=== PATIENT | male | born 1955 | race Caucasian/White ===

== ENCOUNTER → 2018-09-05 | Outpatient (CLI) | payer MEDICAID, MEDICARE ==
--- NOTE | 2018-09-05 09:15 | XR ---
EXAMINATION TYPE: XR cervical spine comp DATE OF EXAM: 09/05/2018 COMPARISON: 04/04/2007 HISTORY: Chronic pain TECHNIQUE: Four views are submitted. FINDINGS: The odontoid is intact. There are no compression deformities. The prevertebral soft tissue structur es are within normal limits. Postsurgical changes are noted. Foraminal encroachment level C3-C7 susp ected bilaterally. Degenerative disc disease C3-C4. Spurring at C2 on C3 noted. Multilevel facet arth ropathy suspected. There may be a minimal anterolisthesis of C5 relative to C6. IMPRESSION: 1. Severe degenerative disc disease C3-C4 with postsurgical change extending C4 to the approximate [place] of T1. 2. Multilevel foraminal encroachment
--- NOTE | 2018-09-05 09:18 | XR ---
EXAM TYPE: LUMBAR SPINE X RAY SERIES COMPARISON: NONE HISTORY: Pain TECHNIQUE: 4 views are submitted. FINDINGS: Alignment is anatomic. The pedicles are intact. The transverse processes are intact. There is no s pondylolysis or spondylolisthesis. Multilevel hypertrophic spurring noted anteriorly with multilevel mild degenerative disc disease. More advanced facet arthropathy L4-5 and L5-S1. Vascular calcificati ons noted. IMPRESSION: 1. Multilevel hypertrophic changes and degenerative disc disease with most marked findings at the tho racolumbar junction. 2. Advanced facet arthropathy L4-5 and L5-S1
== END | disposition home or self-care (01) ==
LOC: RADXRYALE 08:38
PROVIDERS: ATTEND Physician Assistant Medical
DX: M50.31 Other cervical disc degeneration, high cervical region (principal); M51.36 Other intervertebral disc degeneration, lumbar region; M46.87 Other specified inflammatory spondylopathies, lumbosacral region; R26.89 Other abnormalities of gait and mobility; Z98.890 Other specified postprocedural states
CPT/HCPCS: 72050; 72110

== ENCOUNTER → 2018-09-07 | Outpatient (CLI) | payer MEDICAID, MEDICARE ==
--- NOTE | 2018-09-07 23:51 | MR ---
EXAMINATION TYPE: MR cervical spine wo/w con DATE OF EXAM: 09/07/2018 COMPARISON: 06/26/2015 HISTORY: Neck pain, prior surgery 2006 TECHNIQUE: Multiplanar, multisequence images of the cervical spine were acquired utilizing 8.5 mL intravenous Ga davist gadolinium contrast. Diffusion weighted imaging was performed. There is a multilevel anterior fusion surgery from C4 to T1 with metal artifact. Vertebra have normal alignment. The cervical spinal cord shows increased signal within the cord at C4 level and C6 level that measures 7 x 4 mm at both locations. There is no expansion of the cord. There is posterior disc herniation and spurring at C3-4 with some encroachment on the spinal canal. The canal is narrowed to 6 mm at C3-4. I see no focal bone destruction. Precontrast images show no pathologic enhancement. The brainstem is intact. There is no evidence of paraspinal mass. IMPRESSION: Multilevel anterior fusion surgery. There is myelomalacia with increased signal in the cervical cord at C4 and C6 levels unchanged. There is 6 mm cervical bony spinal stenosis at C3-4 unchanged.
== END ==
LOC: RADMRIMAIN 17:38
PROVIDERS: ATTEND Physician Assistant Medical
DX: M48.02 Spinal stenosis, cervical region (principal); G95.89 Other specified diseases of spinal cord; Z98.1 Arthrodesis status
CPT/HCPCS: 82565; 72156; 36415; A9585

== ENCOUNTER 2018-09-30 08:07 | Day surgery (SDC) | payer MEDICAID, MEDICARE ==
[2018-09-27 18:09] VITALS: BMI 30.7
[~2018-09-30 08:07] MED LIST: LACTATED RINGERS 1,000 ML IV SCH; LIDOCAINE 1% 20 ML VIAL (10MG/ML) FOR IV START INTRADERMA PRN
[2018-09-30 08:31] VITALS: RESP 16; TEMP 97.7
[2018-09-30] MEDS ORDERED: PROPOFOL 10 MG/ML 20 ML VIAL IV ONE (09:25)
[2018-09-30] MEDS ORDERED: LIDOCAINE 1% INJ 10MG/ML (20 ML MDV) ONE (09:25)
--- NOTE | 2018-09-30 09:31 | P.GSHP ---
History of Present Illness H&P Date: 09/30/18 Chief Complaint: Colon cancer screening Patient here today for colonoscopy. Last colonoscopy 5 years ago. He says he has a history of colon polyps. No bowel related complaints. Past Medical History Past Medical History: Hyperlipidemia History of Any Multi-Drug Resistant Organisms: None Reported Past Surgical History: Orthopedic Surgery Additional Past Surgical History / Comment(s): COLONOSCOPY. EXC CATARACTS. CERVICAL SURGERY, HAS PLATE. Past Anesthesia/Blood Transfusion Reactions: No Reported Reaction Smoking Status: Former smoker - Past Family History Mother Sister(s) Family Medical History: Cancer Medications and Allergies Home Medications Medication Instructions Recorded Confirmed Type Ascorbic Acid [Vitamin C] 800 mg PO DAILY 09/27/18 09/30/18 History Farrukh Red 1 tab PO DAILY 09/27/18 History Simvastatin [Zocor] 80 mg PO HS 09/27/18 09/30/18 History Tamsulosin [Flomax] 0.4 mg PO DAILY 09/27/18 09/30/18 History Allergies Allergy/AdvReac Type Severity Reaction Status Date / Time No Known Allergies Allergy Verified 09/30/18 08:17 Surgical - Exam Vital Signs Temp Pulse Resp BP Pulse Ox 97.7 F 88 16 147/73 97 09/30/18 08:30 09/30/18 08:30 09/30/18 08:30 09/30/18 08:30 09/30/18 08:30 Physical exam: General: Well-developed, well-nourished HEENT: Normocephalic, sclerae nonicteric Abdomen: Nontender, nondistended Extremities: No edema Neuro: Alert and oriented Assessment and Plan (1) Colon cancer screening Narrative/Plan: Will proceed with colonoscopy at this time. Current Visit: Yes Status: Acute Code(s): Z12.11 - ENCOUNTER FOR SCREENING FOR MALIGNANT NEOPLASM OF COLON SNOMED Code(s): 044772510
--- NOTE | 2018-09-30 09:49 | P.PCN ---
Date of Procedure: 09/30/18 Procedure(s) Performed: PREOPERATIVE DIAGNOSIS: Colon cancer screening, history of polyps POSTOPERATIVE DIAGNOSIS: Diverticulosis PROCEDURE: Colonoscopy ANESTHESIA: MAC SURGEON: Ady Butts M.D. SPECIMENS: None ENDOSCOPIC PROCEDURE: The patient was placed on the endoscopy table in the left decubitus position. The Olympus colonoscope was inserted into the anus and passed under direct visualization to the base of the cecum. The appendiceal orifice was visualized. From that point the scope was slowly withdrawn inspecting all surfaces carefully. There were no neoplastic inflammatory or polypoid lesions throughout the cecum, ascending, transverse, descending, sigmoid and rectum. There was mild left-sided diverticulosis noted. Digital rectal examination was normal. The patient was taken to the recovery room in stable condition per anesthesia guidelines. RECOMMENDATIONS: Increase fiber. Follow-up colonoscopy 5 years.
[2018-09-30 10:39] VITALS: BP 105/71; PULSE 67
== END 2018-09-30 10:37 | disposition home or self-care (01) ==
LOC: ORWHC2ENDO 08:07
PROVIDERS: ATTEND Surgery
DX: Z12.11 Encounter for screening for malignant neoplasm of colon (principal); K57.30 Diverticulosis of large intestine without perforation or abscess without bleeding; E78.5 Hyperlipidemia, unspecified; N40.0 Benign prostatic hyperplasia without lower urinary tract symptoms; Z79.899 Other long term (current) drug therapy; Z86.010 Personal history of colon polyps; Z87.891 Personal history of nicotine dependence
CPT/HCPCS: J2001; J2704; G0105

== ENCOUNTER → 2018-10-03 | Outpatient (CLI) | payer MEDICAID, MEDICARE ==
--- NOTE | 2018-10-04 08:48 | CT ---
EXAMINATION TYPE: CT cervical spine wo con DATE OF EXAM: 10/03/2018 COMPARISON: 09/07/2018 HISTORY: spinal stenosis, cervical degeneration. Hx cervical surgery CT DLP: 528.30 mGycm. Automated Exposure Control for Dose Reduction was Utilized. TECHNIQUE: CT scan of the cervical spine is obtained without contrast, axial images are obtained, sa gittal and coronal reformatted images are also reviewed. FINDINGS: There is anterior cervical fusion of the C4-T1 vertebral bodies with partial osseous fusion . The remaining posterior disc osteophyte complexes at C3-C4, C4-C5 and C7-T1. Multilevel uncovertebr al hypertrophy and facet arthropathy are seen. Anterior osteophytes are present at C2-C3 and C3-C4. T here is degenerative narrowing of the atlantodental interval. No prevertebral soft tissue swelling is seen. The dens appears intact. No acute fracture or dislocation is seen of the cervical spine. Verte bral body heights are maintained. There is very mild grade 1 anterolisthesis of C5 on C6, surgically fixated. Skull base remains aligned. The thyroid gland is somewhat heterogenous although no discrete measurable nodule is seen on CT. Lung apices are well aerated. Nonenlarged cervical chain lymph nodes are present. C2-C3: There is a small left paracentral disc herniation, uncovertebral hypertrophy and facet arthrop athy creating mild left neural foraminal narrowing and mild spinal canal stenosis. Right neuroforamen is patent. C3-C4: There is a right paracentral disc osteophyte complex, uncovertebral hypertrophy and facet arth ropathy that create severe bilateral neural foraminal narrowing and mild spinal canal stenosis. C4-C5: Surgical fixation is noted anteriorly. Uncovertebral hypertrophy and facet arthropathy remain with a broad-based posterior osteophyte creating mild spinal canal stenosis in moderate bilateral danita ral foraminal narrowing. C5-C6: There is grade 1 anterolisthesis. Uncovertebral hypertrophy and facet arthropathy are seen wit h anterior cervical fusion. There is mild right neural foraminal narrowing and severe left neural for aminal narrowing. No significant spinal canal stenosis. C6-C7: Anterior cervical fusion is seen. Uncovertebral hypertrophy and facet arthropathy are present crating severe left neural foraminal narrowing and moderate right neural foraminal narrowing. No sign ificant spinal canal stenosis. C7-T1 there is a very small posterior disc osteophyte complex seen at the lateral recesses. This in c ombination with uncovertebral hypertrophy creates mild bilateral neural foraminal narrowing. No signi ficant spinal canal stenosis. The known myelomalacia seen on the MRI cervical spine dated 09/07/2018 is not visualized on CT and be tter evaluated with MRI. Spinal canal is overall limited on CT. IMPRESSION: 1. Anterior cervical fusion of C4-T1 with acute fracture evident in the cervical spine. Grade 1 ante rolisthesis of C5 on C6 is surgically fixated. 2. Multilevel uncovertebral hypertrophy, facet arthropathy and posterior disc osteophyte complexes gr ating mild spinal canal stenosis at C3-C4 and C4-C5 in variable degrees of neural foraminal narrowing as described above (some levels severe).
== END ==
LOC: RADCTMAIN 15:52
PROVIDERS: ATTEND Family Medicine
DX: M48.02 Spinal stenosis, cervical region (principal); M50.11 Cervical disc disorder with radiculopathy, high cervical region; M99.71 Connective tissue and disc stenosis of intervertebral foramina of cervical region; M46.92 Unspecified inflammatory spondylopathy, cervical region; M25.78 Osteophyte, vertebrae; S12.300A Unspecified displaced fracture of fourth cervical vertebra, initial encounter for closed fracture; Z98.1 Arthrodesis status
CPT/HCPCS: 72125

== ENCOUNTER → 2019-01-23 | Outpatient (CLI) | payer MEDICAID, MEDICARE ==
--- NOTE | 2019-01-23 12:57 | US ---
EXAMINATION TYPE: US thyroid st tissue head/neck DATE OF EXAM: 01/23/2019 COMPARISON: NONE CLINICAL HISTORY: E03.9 Unspecified acquired hypothyroidism. Hypothyroidism per order. GLAND SIZE: Right Lobe: 5.7 x 2.0 x 2.0 cm Overall Parenchyma: Heterogeneous Left Lobe: 3.9 x 2.0 x 1.3 cm Overall Parenchyma: Heterogeneous Isthmus Thickness: 0.40 cm NODULES RIGHT: # of nodules measured on right: 1 1. 0.8 X 0.9 x 0.6 cm hypoechoic solid nodule at the mid pole with poorly defined margins . This n odule is wider than tall and shows intranodular vascularity. Prior size: no prior LEFT: # of nodules measured on left: 1 1. 0.5 X 0.6 x 0.4 cm hypoechoic solid nodule at the lower pole with irregular margins. This nodul e is wider than tall and shows intranodular vascularity. Prior size: no prior ISTHMUS: # of nodules measured in the isthmus: 0 IMPRESSION: Nonspecific thyroid heterogeneity and nodularity. Enlarged right thyroid lobe. Correlate clinically w ith thyroid function testing.
== END | disposition home or self-care (01) ==
LOC: RADUSWWP 11:35
PROVIDERS: ATTEND Family Medicine
DX: E04.1 Nontoxic single thyroid nodule (principal); E03.9 Hypothyroidism, unspecified
CPT/HCPCS: 76536

== ENCOUNTER → 2019-02-27 | Outpatient (CLI) | payer MEDICAID, MEDICARE ==
--- NOTE | 2019-02-27 11:16 | XR ---
EXAMINATION TYPE: XR cervical spine limited DATE OF EXAM: 02/27/2019 COMPARISON: 1217 E HISTORY: post surg f/u. TECHNIQUE: Three views are submitted. FINDINGS: The odontoid is intact. There are no compression deformities. The prevertebral soft tissue structur es are within normal limits. Hypertrophic and degenerative change C2-C3 and C3-C4 with extensive pos tsurgical changes of throughout the cervical spine. Alignment is near-anatomic. Findings are stable. IMPRESSION: 1. Severe degenerative disc disease C3-C4 with stable postsurgical change. 2. Multilevel foraminal encroachment
== END | disposition home or self-care (01) ==
LOC: RADXRMAIN 10:31
PROVIDERS: ATTEND Neurological Surgery
DX: M50.31 Other cervical disc degeneration, high cervical region (principal); Z98.1 Arthrodesis status
CPT/HCPCS: 72040

== ENCOUNTER → 2019-04-27 | Outpatient (CLI) | payer MEDICAID, MEDICARE ==
--- NOTE | 2019-04-27 13:25 | XR ---
Cervical spine HISTORY: Arthrodesis follow up 5 views of the cervical spine correlated prior exam 02/27/2019 Postop changes show a stable appearance. Hypertrophic spondylosis noted again at C2-3, loss of disc height C3-4, anterior cervical fusion and discectomy changes at C4-T1. Posterior fusion extends from C3 through T2. Alignment is stable. Multilevel left-sided foraminal encroachment is present. IMPRESSION: Stable postoperative appearance. Degenerative disc changes.
== END | disposition home or self-care (01) ==
LOC: RADXRMAIN 09:28
DX: Z47.89 Encounter for other orthopedic aftercare (principal); M50.30 Other cervical disc degeneration, unspecified cervical region; Z98.1 Arthrodesis status
CPT/HCPCS: 72050

== ENCOUNTER → 2019-07-24 | Outpatient (CLI) | payer MEDICAID, MEDICARE ==
--- NOTE | 2019-07-24 11:00 | CT ---
EXAMINATION TYPE: CT cervical spine wo con DATE OF EXAM: 07/24/2019 COMPARISON: 10/03/2018 HISTORY: 64-year-old male status post cervical arthrodesis, assess status TECHNIQUE: Contiguous axial scanning of the cervical spine without IV contrast. Coronal and sagittal reconstructions performed. CT DLP: 791 mGycm Automated exposure control for dose reduction was used. FINDINGS: No craniocervical junction abnormality, predental space widening, or prevertebral soft tissue swellin g. Prior ACDF from C4 through T1 levels redemonstrated. Some residual posterior osteophytic ridging resu lting in generalized mild narrowing of the spinal canal along the fused levels unchanged. Fixed grade 1 anterolisthesis along the fused C5-C6 level is unchanged. Redemonstrated disc osteophyte complex above the fusion at C3-C4 with new laminectomy decompressing t he spinal canal at this level. New placement of posterior cervical fusion hardware from C3 through T2 levels. Mild to moderate neuroforaminal stenoses are present, particularly on the right at C3-C4, mild on bot h sides at C4-C5, moderate on the left at C5-C6. Calcified granuloma left upper lobe. Calcified mediastinal lymph nodes compatible with prior granulom atous disease. IMPRESSION: 1. OLD C4-T1 ACDF. Fixed grade 1 anterolisthesis at the fused C5-C6 level. 2. Disc osteophyte complex at C3-C4 redemonstrated now with interval decompression of the dorsal spin al canal. 3. New posterior cervical fusion hardware from C3 through T2 levels. 4. Hyperostotic degenerative changes result in variable mild/moderate neural foraminal narrowing as o utlined above.
== END | disposition home or self-care (01) ==
LOC: RADCTMAIN 09:49
PROVIDERS: ATTEND Neurological Surgery
DX: M47.812 Spondylosis without myelopathy or radiculopathy, cervical region (principal); M53.82 Other specified dorsopathies, cervical region; Z98.1 Arthrodesis status
CPT/HCPCS: 72125

== ENCOUNTER → 2019-08-07 | Outpatient (CLI) | payer MEDICAID, MEDICARE ==
--- NOTE | 2019-08-07 15:52 | XR ---
2 view abdomen HISTORY: Low back pain and hematuria 2 views of the abdomen submitted. Lung bases are clear. There is no evident bowel obstruction or pneumoperitoneum. Degenerative disc ch anges are present in the visualized spine. Multiple calcifications are seen within the pelvis, possib ly vascular. Difficult to exclude distal ureteral calculus. IMPRESSION: Indeterminate calcifications in the pelvis. Degenerative disc disease.
== END | disposition home or self-care (01) ==
LOC: RADXRYALE 15:06
PROVIDERS: ATTEND Physician Assistant Medical
DX: R31.9 Hematuria, unspecified (principal); M54.5 Low back pain
CPT/HCPCS: 74019

== ENCOUNTER → 2020-05-23 | Outpatient (CLI) | payer MEDICAID, MEDICARE | END | disposition home or self-care (01) | LOC: LABPAT 12:16 | PROVIDERS: ATTEND Orthopaedic Surgery | DX: Z01.812 Encounter for preprocedural laboratory examination (principal) | CPT/HCPCS: 87070 ==

== ENCOUNTER 2020-06-19 08:22 | Day surgery (SDC) | payer MEDICAID, MEDICARE ==
[2020-06-17 09:01] VITALS: BMI 29.9
--- NOTE | 2020-06-18 16:02 | HP ---
HISTORY AND PHYSICAL DATE OF SURGERY: 06/19/2020 Tiago Grover is a 64-year-old patient seen with progressive right knee pain. Options for treatment were discussed with her, she elected to proceed with right total knee arthroplasty. Consent regarding the procedure was obtained. Medical clearance was provided by Dr. Cherry. PAST MEDICAL HISTORY: Hypothyroidism, hyperlipidemia. PAST SURGICAL HISTORY: Noncontributory. DAILY MEDICATIONS: Levothyroxine, simvastatin. ALLERGIES: None. SOCIAL HISTORY: She denies current tobacco use. PHYSICAL EVALUATION OF THE RIGHT KNEE: Range of motion is 0-125. Mild effusion. Tenderness medial joint line. Crepitus medial patellofemoral compartments and range of motion. Pain with patellofemoral compression. Ligaments stable. Hip rotation without pain. Distal neurovascular exam is intact. RIGHT KNEE RADIOGRAPHS: Reveal severe osteoarthritic changes. IMPRESSION: 1. Right knee osteoarthritis. 2. Hyperlipidemia. 3. Hypothyroidism. PLAN: Right total knee arthroplasty. MMODL / IJN: [id number] /
[~2020-06-19 08:22] MED LIST changes: +ACETAMINOPHEN TAB 500 MG TAB PO ONE; +LIDOCAINE 1% (10MG/ML) FOR IV START INTRADERMA PRN; -LIDOCAINE 1% 20 ML VIAL (10MG/ML) FOR IV START INTRADERMA PRN; +MELOXICAM 7.5 MG TAB PO ONE; +MIDAZOLAM 2 MG/2 ML VIAL IV PRN; +ROPIVACAINE 246.25 MG, EPINEPHrine 0.5 MG, KETOROLAC 30 MG, cloNIDine HCL/PF 80 MCG, WA... MISCELLANE ONE; +TRANEXAMIC ACID 1,000 MG in SODIUM CHLORIDE 0.9% 100 ML IVPB ONE; +fentaNYL (PF) 50 MCG/ML 2 ML AMP IV PRN; +fentaNYL (PF) 50 MCG/ML 2 ML AMP IVP PRN
[2020-06-19] MEDS ORDERED: ONDANSETRON 4 MG/2 ML VIAL ONE (09:13)
[2020-06-19] MEDS ORDERED: PROPOFOL 10 MG/ML 20 ML VIAL IV ONE (10:20)
[2020-06-19] MEDS ORDERED: MIDAZOLAM 2 MG/2 ML VIAL ONE (10:20)
[2020-06-19] MEDS ORDERED: TRANEXAMIC ACID 1,000 MG/10 ML VIAL ONE (10:20)
[2020-06-19] MEDS ORDERED: SODIUM CHLORIDE 0.9% 100 ML BAG ONE (10:20)
[2020-06-19] MEDS ORDERED: ceFAZolin 1,000 MG in SODIUM CHLORIDE 0.9% 1,000 ML IRRIGATION ONE (10:22)
[2020-06-19] MEDS ORDERED: ROPIVACAINE 0.2%-NS ON-Q PUMP 1,090 MG, EMPTY PAIN BALL 1 EACH MISCELLANE PRN (10:23)
--- NOTE | 2020-06-19 10:25 | P.ANPRN ---
Procedure Note - Anesthesia - Nerve Block Performed Right Adductor Canal Time Out Performed: Yes (:) Date of Procedure: 06/19/20 Procedure Start Time: Procedure Stop Time: : Location of Patient: PreOp Indication: Acute Post-Operative Pain, Requested by Surgeon (DR Green) Sedation Type: Sedate with meaningful contact maintained Preparation: Sterile Prep, Sterile Dressing Position: Supine Catheter: Indwelling Needle Types: Pajunk Needle Gauge: 21 Ultrasound used to visualize needle placement: Yes Ultrasound used to observe medication spread: Yes Injectate: 0.5% Ropivacaine (see comment for volume) (20cc) Blood Aspirated: No Pain Paresthesia on Injection Noted: No Resistance on Injection: Normal Image Stored and Saved: Yes Events: Uneventful and Well Tolerated
[2020-06-19] MEDS ORDERED: HYDROmorphone 0.5 MG/0.5 ML SYRINGE IVP PRN ×2 (12:17)
[2020-06-19] MEDS ORDERED: HYDROmorphone 1 MG/ML 1 ML SYRINGE IVP PRN (12:17)
[2020-06-19] MEDS ORDERED: HYDROcodone/APAP 5-325MG 1 EACH TAB PO PRN (12:17)
[2020-06-19] MEDS ORDERED: ONDANSETRON 4 MG/2 ML VIAL IVP PRN (12:17)
[2020-06-19] MEDS ORDERED: NALOXONE 0.4 MG/ML 1 ML VIAL IV PRN (12:17)
--- NOTE | 2020-06-19 12:17 | P.OP ---
Date of Procedure: 06/19/20 Preoperative Diagnosis: Right knee osteoarthritis Postoperative Diagnosis: Right knee osteoarthritis Procedure(s) Performed: Right total knee arthroplasty Implants: 1. Depuy attune size 5 right cruciate retaining cemented femur 2. Depuy attune size 6 fixed bearing cemented tibial baseplate 3. Depuy attune size 5 fixed bearing cruciate retaining 12 mm polyethylene tibial insert 4. Depuy attune 41 mm all polyethylene cemented patella Anesthesia: regional (Adductor canal catheter), local, spinal Surgeon: Sang Green Product Support Representative #1: Brandon Hook Estimated Blood Loss (ml): 45 Pathology: other (Bone) Condition: stable Disposition: PACU Indications for Procedure: 64 -year-old patient seen with symptomatic right knee osteoarthritis. After treatment options were discussed, he elected to proceed with total knee ar throplasty. Operative Findings: See description of procedure Description of Procedure: Patient was taken to the operative suite after having an adductor canal catheter placed by the department of anesthesia. Patient underwent a spinal anesthetic by the department of anesthesia. Patient was given preoperative IV intake antibiotics and TXA. A well-padded tourniquet was placed about the right lower extremity. The lower extremity was then prepped and draped in the normal sterile orthopedic fashion. The extremity was elevated, a tourniquet was insufflated to 300. A standard anterior incision was made sharply through skin. Dissection was taken down through the subcutaneous soft tissues down to the extensor mechanism. A medial arthrotomy was performed, patella was everted and knee was flexed. There was advanced osteoarthritis noted. I introduced my distal intramedullary femoral drill. I then introduced the distal femoral cutting jig. Duane LAZARO secured the cutting jig with 2 pins. I held retractors in position while Duane LAZARO performed the distal femoral resection through the guide area we now removed her distal femoral cutting guide. We now placed our 4-in-1 femoral cutting block and positioned and it was secured with 2 pins by Duane LAZARO while I held the block in position. The distal femoral finishing was now completed. A proximal tibial cutting guide was positioned. I held the guide in the appropriate position with both hands well Duane LAZARO inserted stabilizing pins into the guide. Proximal tibial cut was made. We now placed a trial femoral component into position, along with an appropriate size tibial tray and insert. We now took the knee through range of motion and had full extension good flexion and good overall soft tissue balance noted. The patella was everted and stabilized with 2 towel clips held by Duane LAZARO while I performed a flush with patellar quad tendon utilizing a fresh sawblade. We templated the patella, appropriate drill holes were made. An appropriate trial patella was positioned, knee was taken through full range of motion with the patella tracking very nicely. The trial patella was removed. Drill holes were made through the femoral component. All trial components were removed after marking off the appropriate rotation of the tibia. Retractors were now positioned along the proximal tibia. An appropriate keel punch was made with the appropriate size tibial guide by myself on Duane LAZARO assisted by holding retractors. At this point appropriate size implants were chosen and opened. The joint was irrigated copiously with pulse lavage mechanical irrigation. The posterior capsule was infiltrated with local analgesic. The wound was irrigated with pulse lavage mechanical irrigation. We mixed antibiotic methylmethacrylate. We placed the knee into flexion. We placed multiple retractors assisted by Duane LAZARO to expose the proximal tibia. Once the methyl methacrylate was ready, the tibial component was cemented into place removing any excess methylmethacrylate form by both myself and Duane LAZARO. The femoral component was cemented into place removing the removing any excess methylmethacrylate performed by both myself and Duane LZAARO. We then inserted the appropriate size polyethylene tibial insert. We made sure that it was locked into position. We took the knee into full extension, and then back in a flexion making sure we had removed any excess methylmethacrylate. The patellar component was then cemented down and secured with clamp. Excess methylmethacrylate removed. We kept the knee in full extension, patellar clamp in position until methylmethacrylate had hardened. Once it had hardened the patellar clamp was removed. The knee was taken through full range of motion. The patella tracked nicely. There was good soft tissue balancing. The tourniquet was now released. Additional hemostasis was achieved via electrocautery. A second gram of TXA was given. The wound again was irrigated with pulse lavage mechanical irrigation. The superficial soft tissues were infiltrated local analgesic. The extensor mechanism was repaired with Vicryl. We checked the repair with range of motion and it was stable. The subcutaneous soft tissues were repaired with Vicryl in layers. The skin was approximated with pernio/Dermabond. Sterile dressings were applied followed by loose web roll and Ángel bandage. The patient was transferred to a bed, and taken to recovery in stable and satisfactory condition. Duane LAZARO assisted with this complex procedure.
--- NOTE | 2020-06-19 13:01 | XR ---
Limited right knee HISTORY: Status post right knee arthroplasty 2 views of the right knee Patient is status post right knee arthroplasty. There is anatomic alignment. Lucency is present in th e soft tissues. IMPRESSION: Orthopedic follow-up.
[2020-06-19] MEDS: LACTATED RINGERS 1,000 ML IV SCH (14:01)
[2020-06-19] MEDS: HYDROcodone/APAP 5-325MG 1 EACH TAB PO PRN (14:56)
[2020-06-19] MEDS ORDERED: TAMSULOSIN 0.4 MG CAP.ER.24H PO SCH (21:00)
[2020-06-19] MEDS ORDERED: SENNOSIDES-DOCUSATE SODIUM 1 EACH TAB PO SCH (21:00)
[2020-06-19] MEDS ORDERED: ATORVASTATIN 40 MG TAB PO SCH (21:00)
[2020-06-20] MEDS: LACTATED RINGERS 1,000 ML IV SCH (01:04)
[2020-06-20] MEDS ORDERED: ONDANSETRON 4 MG/2 ML VIAL IVP PRN (01:46)
[2020-06-20] MEDS ORDERED: NALOXONE 0.4 MG/ML 1 ML VIAL IV PRN (01:46)
[2020-06-20 05:17] VITALS: TEMP 98.4
[2020-06-20] MEDS: HYDROcodone/APAP 5-325MG 1 EACH TAB PO PRN (05:24)
--- NOTE | 2020-06-20 06:28 | P.PN ---
Progress Note - Text The patient is status post right adductor canal catheter placement. The catheter was placed for postoperative pain control, status post total right arthroplasty. Ropivacaine 0.2% is infusing at 8 mLs per hour. The patient has no complaints of right lower extremity numbness or weakness. Patient's VAS score is 23 -10. Assessment: Patient's adductor canal catheter is in place and working appropriately. Plan: continue infusion and adjust it as needed .
[2020-06-20] MEDS ORDERED: LEVOTHYROXINE 25 MCG TAB PO SCH (06:30)
--- NOTE | 2020-06-20 07:50 | CONS ---
CONSULTATION REASON FOR CONSULTATION: Advice regarding hyperlipidemia and other medical issues requested by Dr. Green. HISTORY OF PRESENT ILLNESS: This 64-year-old gentleman with the past medical history of hyperlipidemia, hypothyroidism, history of back surgery, history of DJD, history of nicotine dependence being followed by Dr. Cherry in the outpatient setting was admitted after right total knee arthroplasty for severe degenerative joint disease. There is no history of fever, rigors. No history of headache, loss of consciousness, seizures at this time. PAST MEDICAL HISTORY: History of hyperlipidemia, hypothyroidism, history of back surgery, history of nicotine dependence. MEDICATIONS: Home medications are: Tylenol, coenzyme Q, Flomax, Zocor, Synthroid. ALLERGIES: None. FAMILY HISTORY: History of cancer in the family. SOCIAL HISTORY: Previous history of smoking. Occasional alcohol intake. REVIEW OF SYSTEMS: ENT: No diminished hearing or diminished vision. CARDIOVASCULAR SYSTEM: No angina. RESPIRATORY SYSTEM: No cough or hemoptysis. GI: No nausea. : No dysuria. NERVOUS SYSTEM: No numbness or weakness. ALLERGY/IMMUNOLOGY: No asthma or hayfever. MUSCULOSKELETAL: As mentioned earlier. HEMATOLOGY/ONCOLOGY: No history of anemia. ENDOCRINE: Hypothyroidism. CONSTITUTIONAL: As mentioned earlier. DERMATOLOGY: Negative. RHEUMATOLOGY: Negative. PSYCHIATRY: As mentioned earlier. PHYSICAL EXAMINATION: The patient is alert and oriented x3. Pulse 66, blood pressure 100/60, respiration 18, temperature 98.2, pulse ox 96% on room air. HEENT: Conjunctivae normal. Oral mucosa moist. NECK: No jugular venous distention. No carotid bruit. No lymph node enlargement. CARDIOVASCULAR: S1, S2 muffled. RESPIRATORY: Breath sounds diminished at the bases. No rhonchi, no crackles. ABDOMEN: Soft, obese, nontender. No mass palpable. LEGS: Status post surgery. NERVOUS SYSTEM: Higher functions as mentioned earlier. Moves all 4 limbs. No focal motor or sensory deficits. LYMPHATICS: No lymphadenopathy of the neck, axillae or groin. SKIN: No ulcer, rash or bleeding. JOINTS: No active deforming arthropathy. LABS: CBC, BMP within normal limits. ASSESSMENT: 1. Status post right total knee arthroplasty. 2. Hyperlipidemia. 3. Hypothyroidism. 4. History of back surgery. 5. History of degenerative joint disease. 6. Remote history of nicotine dependence. 7. Obesity with body mass index 30.9. RECOMMENDATIONS AND DISCUSSION: This 64-year-old gentleman who presented with multiple complex medical issues, we will monitor the patient closely. Continue the current medications. Continue symptomatic treatment. Will initiate the home medications. DVT prophylaxis. Incentive spirometry. Patient is on Lovenox at this time. We will follow the patient closely. The patient may be asked to follow up with primary physician after discharge. Thank you Dr. Green for letting us participate in the care of this patient. MMFAVIANL / BLANCON: [id number] /
[2020-06-20 08:09] VITALS: BP 113/73; PULSE 80; RESP 18
[2020-06-20 08:57] LABS: Basophils % (A) 0 %; Eosinophils # (A) 0.1 k/uL (0-0.7); Eosinophils % (A) 1 %; HCT 37.1 % (39.0-53.0); HGB 12.1 gm/dL (13.0-17.5); Lymphocytes # (A) 1.1 k/uL (1.0-4.8); Lymphocytes % (A) 13 %; MCH 28.9 pg (25.0-35.0); MCHC 32.6 g/dL (31.0-37.0); MCV 88.6 fL (80.0-100.0); Mean Platelet Volume 8.1; Monocytes # (A) 0.6 k/uL (0-1.0); Monocytes % (A) 7 %; Neutrophils % (A) 79 %; Platelet Count 171 k/uL (150-450); RBC 4.18 m/uL (4.30-5.90); RDW 13.3 % (11.5-15.5); WBC 8.8 k/uL (3.8-10.6)
[2020-06-20] MEDS ORDERED: ENOXAPARIN 30 MG/0.3 ML SYRINGE SQ SCH (09:00)
[2020-06-20] MEDS ORDERED: MELOXICAM 7.5 MG TAB PO SCH (09:00)
--- NOTE | 2020-06-20 09:51 | P.PN ---
Subjective Progress Note Date: 06/20/20 Principal diagnosis: status post right total knee arthroplasty Patient evaluated today at bedside, he is resting comfortably. He is ambulating well with therapy. His pain is controlled. He denies any chest pain or shortness of breath at this time. Objective - Vital Signs Vital signs: Vital Signs Temp 98.4 F 06/20/20 07:00 Pulse 80 06/20/20 07:00 Resp 18 06/20/20 07:00 BP 113/73 06/20/20 07:00 Pulse Ox 95 06/20/20 07:00 Intake & Output 06/19/20 06/20/20 06/20/20 18:59 06:59 18:59 Intake Total 851 1200 Output Total 45 1200 Balance 806 0 Weight 84.1 kg Intake: IV 851 Intake, IV Titration 1200 Amount Lactated Ringers 1,000 ml 1150 @ 100 mls/hr IV .Q10H [facility] Rx#:[id number] ceFAZolin 2 gm In Sodium 50 Chloride 0.9% 50 ml @ 100 mls/hr IVPB Q8H [facility]ALL Rx#: [id number] Output: Urine 1200 Estimated Blood Loss 45 Other: Voiding Method Urinal # Bowel Movements 0 - Exam Right lower extremity: Incision is clean, dry, and intact. The foam dressing is in good condition. There is minimal soft tissue swelling and ecchymosis surrounding the medial and lateral aspects of the incision. Calf is soft, no tenderness with palpation. Plantar flexion, dorsiflexion, EHL, FHL are intact. Sensory exam to light touch throughout the extremity is intact, dorsal pedis pulses 2+. - Labs CBC & Chem 7: 06/20/20 07:46 Labs: Abnormal Lab Results - Last 24 Hours (Table) 06/20/20 Range/Units 07:46 RBC 4.18 L (4.30-5.90) m/uL Hgb 12.1 L (13.0-17.5) gm/dL Hct 37.1 L (39.0-53.0) % Assessment and Plan Assessment: Status post right total knee arthroplasty Plan: Pain control, plan for discharge home on oral medication GI and DVT prophylaxis, aspirin 81 mg twice a day Wound care instructions discussed Home nursing and therapy after discharge Medical recommendations Plan discharge home today Time with Patient: Less than 30
--- NOTE | 2020-06-20 09:53 | P.DS ---
Providers Date of admission: 06/19/2020 Expected date of discharge: 06/20/20 Attending physician: Sang Green Consults: 06/19/20 12:17 Consult Physician Routine Consulting Provider: Pk Smith Consult Reason/Comments: Medical management Do you want consulting provider notified?: Yes [facility] Course: Date of admission: 06/19/2020 Date of discharge: 06/20/2020 Admission diagnosis: Status post right total knee arthroplasty Discharge diagnosis: Same Attending physician: Dr. Green Surgical procedures: Right total knee arthroplasty Brief history: Patient is a 64-year-old male with a history of progressive primary right knee osteoarthritis. At this point patient has failed conservative treatment measures and has opted to proceed with a elective right total knee arthroplasty. Hospital course: Details of patient's surgery can be found in operative report. Patient tolerated the procedure well and was subsequently transported to orthopedic floor. Patient's orthopeidc and medical care was provided daily. Patient had daily laboratory tests performed for evaluation of overall blood counts. Patient had daily physical therapy to include strengthening range of motion as well as education with walker ambulation. Patient was treated with Lovenox for their postoperative DVT prophylaxis during their inpatient stay. Patient was noted to have a relatively uneventful postoperative course. Patient reported satisfactory pain control with oral pain medications by postoperative day 0. Patient showed satisfactory progress with physical therapy. Patient moved steadily through the program and had no difficulty meeting the goals by postoperative day 1. Given patient's otherwise satisfactory course and having met physical therapy goals, plan is to discharge patient home on postoperative day 1. Discharge condition/disposition: Patient will be discharged home in stable condition. Discharge medications: Instructions are given on resumption of patient's normal daily medications per primary care recommendation, in addition patient will be prescribed Kings[place] 5 mg/325 mg, Colace 100 mg, aspirin 81 mg. Discharge instructions: 1. Wound care and infection precautions, keep incision dry and covered while showering, no lotions, creams, moisturizers. No soaking, tubs, pools, hottubs. Do not scrub over the incision. 2. Weight-bear as tolerated with walker / cane until follow-up. 3. Ice and elevate when necessary. Do not exceed 20 minutes per hour with ice pack. 4. Utilize compression sleeve until seen at first follow up appointment. 5. Visiting nursing care. 6. Home physical therapy including home CPM. 7. Pain meds and anticoagulants per prescription. 8. Pain medication has potential to cause constipation. Increase oral fluid and fiber intake. Contact primary care provider if you have not had a bowel movement within 48 hours after discharge 9. No anti-inflammatory medication until discussed at first post operative visit, this including Motrin, Aleve, Mobic, Diclofenac, Aspirin. 10. Follow up in office at 2 weeks postop with Duane Hook PA-C 11. Follow up with your primary care doctor 7-10 days after discharge. 12. Contact [facility] with any questions, . Procedures: Right total knee arthroplasty Patient Condition at Discharge: Good Plan - Discharge Summary Discharge Rx Participant: No New Discharge Prescriptions: New Aspirin [Adult Low Dose Aspirin EC] 81 mg PO BID #60 tablet. Docadante [Colace] 100 mg PO DAILY #30 capsule Hydrocodone/Acetaminophen [Kingsport 5-325] 1 - 2 each PO Q6HR PRN #56 tab PRN Reason: Pain No Action Tamsulosin [Flomax] 0.4 mg PO HS Simvastatin [Zocor] 80 mg PO HS Levothyroxine Sodium [Synthroid] 25 mcg PO DAILY Acetaminophen Tab [Tylenol] 325 mg PO DIRECTED PRN PRN Reason: Pain Co Q10(Dose Unknown) 1 tab PO DAILY Discharge Medication List Simvastatin [Zocor] 80 mg PO HS 09/27/18 [History] Tamsulosin [Flomax] 0.4 mg PO HS 09/27/18 [History] Acetaminophen Tab [Tylenol] 325 mg PO DIRECTED PRN 06/17/20 [History] Co Q10(Dose Unknown) 1 tab PO DAILY 06/17/20 [History] Levothyroxine Sodium [Synthroid] 25 mcg PO DAILY 06/17/20 [History] Aspirin [Adult Low Dose Aspirin EC] 81 mg PO BID #60 tablet. 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 Wound care and infection precautions, keep incision dry and covered while showering, no lotions, creams, moisturizers. No soaking, pools, hot tubs. Do not scrub over incision. Okay to remove foam dressing on 06/26/2020 2. Weight-bear as tolerated with walker / cane until follow-up. 3. Ice and elevate when necessary. Do not exceed 20 minutes per hour with ice pack. 4. Utilize compression sleeve until seen at first follow up appointment. 5. Pain meds and anticoagulants per prescription. 6. Pain medication has potential to cause constipation. Increase oral fluid and fiber intake. Contact primary care provider if you have not had a bowel movement within 48 hours after discharge. 7. No anti-inflammatory medication until discussed at first post operative visit, this including Motrin, Aleve, Mobic, Diclofenac. 8. Follow up in office at 2 weeks postop with Duane Hook PA-C 9. Follow up with your primary care doctor 7-10 days after discharge. 10. Contact [facility] with any questions, [phone]. 11. Please call [employer] once home to arrange delivery of Continuous Passive Motion (CPM) machine: [phone]. Discharge Disposition: HOME WITH HOME HEALTH SERVICES
--- NOTE | 2020-06-20 22:41 | PN ---
PROGRESS NOTE DATE OF SERVICE: 06/20/2020 This 64-year-old gentleman who was admitted after right total knee arthroplasty, improving significantly. No chest pain. No palpitations. No fever. PHYSICAL EXAMINATION: Alert and oriented x3. Pulse 80. Blood pressure 113/73. Respirations 18. Temperature 98.4, pulse ox 95% on room air. HEENT is conjunctivae normal. NECK: No JVD. CARDIOVASCULAR: S1, S2 muffled. RESPIRATIONS: Breath sounds diminished in the bases. No rhonchi. No crackles. ABDOMEN: Soft. LEGS: Status post surgery. NERVOUS SYSTEM: No focal deficits. LABORATORY DATA: Hemoglobin 12.1. Other labs are noted. ASSESSMENT: 1. Status post right total knee arthroplasty. 2. Hyperlipidemia. 3. Hypothyroidism. 4. History of back surgery. 5. History of degenerative joint disease. 6. Remote history of nicotine dependence. 7. Obesity with body mass index of 30.9. RECOMMENDATIONS AND DISCUSSION: Recommend to continue current medications, management and symptomatic treatment. Resume the home medications. DVT prophylaxis. Incentive spirometry. Follow with primary physician in 2-3 weeks or p.r.n. The rest of the recommendations per Orthopedic surgery. Further recommendations to follow. MMODL / IJN: [id number] /
== END 2020-06-20 12:50 | disposition home health service (06) ==
LOC: OR 08:22 → 4SSUR 12:43 → OR 06-20 12:50
PROVIDERS: ATTEND Orthopaedic Surgery
DX: M17.11 Unilateral primary osteoarthritis, right knee (principal); E03.9 Hypothyroidism, unspecified; E78.2 Mixed hyperlipidemia; N40.0 Benign prostatic hyperplasia without lower urinary tract symptoms; E55.9 Vitamin D deficiency, unspecified; I65.23 Occlusion and stenosis of bilateral carotid arteries; E66.9 Obesity, unspecified; Z79.890 Hormone replacement therapy; Z79.899 Other long term (current) drug therapy; Z87.891 Personal history of nicotine dependence; Z68.30 Body mass index [BMI] 30.0-30.9, adult; Z98.1 Arthrodesis status; Z98.890 Other specified postprocedural states; Z80.9 Family history of malignant neoplasm, unspecified; Z82.49 Family history of ischemic heart disease and other diseases of the circulatory system; Z80.0 Family history of malignant neoplasm of digestive organs
CPT/HCPCS: 97110; 97161; 64448; 76942; 85025; 88300; 73560; 27447; C1776; C1713; J2250; J0171; J0690 ×3; J2405; J3010; J1885; J1650; J2795 ×2; J0735

== ENCOUNTER 2020-11-18 07:36 | Day surgery (SDC) | payer MEDICAID, MEDICARE ==
[2020-11-15 08:26] VITALS: BMI 29.9
--- NOTE | 2020-11-17 11:11 | HP ---
HISTORY AND PHYSICAL DATE OF SURGERY: 11/18/2020 HISTORY OF PRESENT ILLNESS: Tiago Grover is a 65-year-old patient seen with persistent right knee adhesions after having undergone previous total knee arthroplasty. Options were discussed. Patient elected to proceed with manipulation under anesthesia of the right knee with steroid injection. Consent obtained. PAST MEDICAL HISTORY: Hyperlipidemia, hypothyroidism. PAST SURGICAL HISTORY: Right total knee arthroplasty. MEDICATIONS: Levothyroxine, simvastatin. ALLERGIES: NONE. SOCIAL HISTORY: Patient denies tobacco use. PHYSICAL EXAMINATION: Evaluation of the right knee shows incision well healed. Range of motion is -4/5-110. Ligaments stable. Reasonable strength. Distal neurovascular exam intact. Homans and Alverto are both negative. RADIOGRAPHS: Right knee radiographs revealed a stable appearing total knee arthroplasty. IMPRESSION: 1. Right knee adhesions. 2. Right total knee arthroplasty. 3. Hyperlipidemia. 4. Hypothyroidism. PLAN: Manipulation right knee under anesthesia with steroid injection. MMODL / IJN: [id number] /
[~2020-11-18 07:36] MED LIST changes: -ACETAMINOPHEN TAB 500 MG TAB PO ONE; +DEXAMETHASONE SOD PHOSPHATE 4 MG/ML 1 ML VIAL IV ONE; +HYDROmorphone 0.5 MG/0.5 ML SYRINGE IVP PRN; -MELOXICAM 7.5 MG TAB PO ONE; +ONDANSETRON 4 MG/2 ML VIAL IVP ONE; -ROPIVACAINE 246.25 MG, EPINEPHrine 0.5 MG, KETOROLAC 30 MG, cloNIDine HCL/PF 80 MCG, WA... MISCELLANE ONE; -TRANEXAMIC ACID 1,000 MG in SODIUM CHLORIDE 0.9% 100 ML IVPB ONE; -fentaNYL (PF) 50 MCG/ML 2 ML AMP IV PRN; -fentaNYL (PF) 50 MCG/ML 2 ML AMP IVP PRN
[2020-11-18 08:35] VITALS: TEMP 98.2
[2020-11-18] MEDS ORDERED: ONDANSETRON 4 MG/2 ML VIAL IVP ONE (08:45)
[2020-11-18] MEDS ORDERED: PROPOFOL 10 MG/ML 20 ML VIAL IV ONE (09:24)
[2020-11-18] MEDS ORDERED: methylPREDNISolone ACETATE 40 MG/ML 1 ML VIAL ONE (09:24)
[2020-11-18] MEDS ORDERED: BUPIVACAINE (PF) 0.25% 30 ML VIAL ONE (09:24)
[2020-11-18] MEDS ORDERED: LIDOCAINE 1% INJ 10MG/ML (20 ML MDV) ONE (09:24)
[2020-11-18] MEDS ORDERED: HYDROmorphone (PF) 1 MG/ML ONE (09:24)
[2020-11-18] MEDS ORDERED: KETOROLAC 15 MG/ML 1 ML VIAL ONE (09:24)
--- NOTE | 2020-11-18 09:50 | P.OP ---
Date of Procedure: 11/18/20 Preoperative Diagnosis: Right knee adhesions Postoperative Diagnosis: Right knee adhesions Procedure(s) Performed: Manipulation under anesthesia right knee with steroid injection Anesthesia: MAC Surgeon: Sang Green Estimated Blood Loss (ml): 0 Pathology: none sent Condition: stable Disposition: PACU Indications for Procedure: 65-year-old gentleman seen with right knee adhesions after previously having undergone total knee arthroplasty. We discussed options. He elected to proceed with manipulation under anesthesia with steroid injection. Operative Findings: see description of procedure Description of Procedure: The patient was taken to monitored anesthesia area. The patient underwent IV sedation by the department of anesthesia. He did received preoperative IV antibiotics. Once sufficient anesthesia was noted I performed a manipulation of the right knee achieving full extension and 135 of flexion with audible tearing of the adhesions. The superior lateral aspect of the knee was prepped and draped in the normal sterile orthopedic fashion. I now injected solution of 1 mL Depo-Medrol and 2 mL quarter percent plain Marcaine. The knee was taken through range of motion. I applied a Band-Aid to the injection site. The patient was awakened having tolerated procedure well.
[2020-11-18 10:05] VITALS: RESP 16
[2020-11-18 10:33] VITALS: BP 118/74; PULSE 71
== END 2020-11-18 10:48 | disposition home or self-care (01) ==
LOC: OR 07:36
PROVIDERS: ATTEND Orthopaedic Surgery
DX: M23.8X1 Other internal derangements of right knee (principal); E78.5 Hyperlipidemia, unspecified; E03.9 Hypothyroidism, unspecified; Z96.651 Presence of right artificial knee joint; R56.9 Unspecified convulsions; Z79.890 Hormone replacement therapy; Z79.899 Other long term (current) drug therapy
CPT/HCPCS: 27570; J1030; J0690; J2405; J2001; J1170; J1885; J2704

== ENCOUNTER → 2021-01-20 | Outpatient (CLI) | payer MEDICAID, MEDICARE | END | disposition home or self-care (01) | LOC: RADMRIMAIN 09:18 | PROVIDERS: ATTEND Family Medicine | DX: Z53.9 Procedure and treatment not carried out, unspecified reason (principal) ==

== ENCOUNTER → 2021-01-24 | Outpatient (CLI) | payer MEDICAID, MEDICARE ==
--- NOTE | 2021-01-24 21:32 | MR ---
EXAMINATION TYPE: MR brain wo/w con DATE OF EXAM: 01/24/2021 COMPARISON: None HISTORY: Tremor CONTRAST: Standard multiplanar, multisequence MRI departmental protocol utilizing 7.5 mL intravenous Gadavist g adolinium contrast. The diffusion images show no evidence of an acute infarct. Ventricles have normal size. There is no m ass effect nor midline shift. There is no evidence of intracranial hemorrhage. Brainstem is intact. Lara-white matter structures have fairly normal signal pattern. There is no evid ence of cerebral edema. There is a single 3 mm focus of increased signal at the lara-white matter dalia ction left posterior temporal lobe. The corpus callosum is intact. There is no evidence of orbital mass. Sella turcica appears normal. The contrast images show normal enhancement of the venous sinuses. There is no pathologic enhancement . The meninges appear normal. IMPRESSION: Essentially normal MR scan of the brain.
== END | disposition home or self-care (01) ==
LOC: RADMRIMAIN 20:07
PROVIDERS: ATTEND Family Medicine
DX: R25.1 Tremor, unspecified (principal)
CPT/HCPCS: 70553; A9585

== ENCOUNTER → 2021-04-28 | Outpatient (CLI) | payer MEDICAID, MEDICARE ==
--- NOTE | 2021-04-28 15:47 | XR ---
EXAM TYPE: LUMBAR SPINE X RAY SERIES COMPARISON: NONE HISTORY: Pain TECHNIQUE: 4 views are submitted. FINDINGS: Alignment is anatomic. The pedicles are intact. The transverse processes are intact. There is no s pondylolysis or spondylolisthesis. Multilevel facet arthropathy is seen and there is diffuse osteopen ia. Narrowing of the SI joints bilaterally. Hypertrophic spurring at all levels with multilevel mild to moderate degenerative disc disease. Facet arthropathy most pronounced at L4-5 and L5-S1 with suspe cted foraminal encroachment. Vascular calcifications noted. IMPRESSION: 1. Diffuse osteopenia with multilevel degenerative disc disease and facet arthropathy as discussed ab ove. Foraminal encroachment L4-5 and L5-S1 suspected recommend follow-up MRI.
== END | disposition home or self-care (01) ==
LOC: RADXRYALE 15:18
PROVIDERS: ATTEND Family Medicine
DX: M54.41 Lumbago with sciatica, right side (principal); M51.37 Other intervertebral disc degeneration, lumbosacral region; M47.896 Other spondylosis, lumbar region; M85.88 Other specified disorders of bone density and structure, other site
CPT/HCPCS: 72110

== ENCOUNTER → 2021-12-09 | Outpatient (CLI) | payer MEDICAID, MEDICARE ==
[2021-12-09 20:09] LABS: African American GFR (CKD) 106.4 (60.0-200.0); Anion Gap 10.6 mmol/L (10.00-18.00); BUN/Creat Ratio 22.25 Ratio (12.00-20.00); Blood Urea Nitrogen 17.8 mg/dL (9.0-27.0); Calcium 9.5 mg/dL (8.7-10.3); Carbon Dioxide 24.4 mmol/L (20.0-27.5); Non-African American GFR(CKD) 91.8 (60.0-200.0); Potassium 4.5 mmol/L (3.5-5.5)
[2021-12-09 21:00] LABS: Basophils # (A) 0.01 X 10*3/uL (0.00-0.10); Basophils % (A) 0.1 %; Eosinophils # (A) 0.08 X 10*3/uL (0.04-0.35); HCT 41.8 % (39.6-50.0); HGB 13.2 g/dL (13.0-17.0); Immature Grans, Automated 0.5 %; Lymphocytes # (A) 2.36 X 10*3/uL (0.90-5.00); Lymphocytes % (A) 28.3 %; MCHC 31.6 g/dL (32.0-37.0); MCV 91.9 fL (80.0-97.0); Mean Platelet Volume 12.1 fL (9.5-12.2); Monocytes # (A) 0.59 X 10*3/uL (0.20-1.00); Monocytes % (A) 7.1 %; NRBC Per 100 WBC 0 /100 WBCS (0.0-0.0); Neutrophils # (A) 5.26 X 10*3/uL (1.80-7.70); Platelet Count 190 X 10*3/uL (140-440); RBC 4.55 X 10*6/uL (4.40-5.60); RDW 13.2 % (11.5-14.5); WBC 8.34 X 10*3/uL (4.50-10.00)
[2021-12-09 21:04] LABS: INR 0.96 (0.90-1.11); Prothrombin Time 10.9 sec (9.9-11.9)
== END | disposition home or self-care (01) ==
LOC: LABPAT 11:12
PROVIDERS: ATTEND Orthopaedic Surgery
DX: Z01.818 Encounter for other preprocedural examination (principal); Z22.322 Carrier or suspected carrier of Methicillin resistant Staphylococcus aureus; M17.12 Unilateral primary osteoarthritis, left knee; R00.1 Bradycardia, unspecified
CPT/HCPCS: 36415; 80048; 85025; 85610; 87070; 93005

== ENCOUNTER 2021-12-15 09:28 | Day surgery (SDC) | payer MEDICAID, MEDICARE ==
[2021-12-10 08:38] VITALS: BMI 31.7
--- NOTE | 2021-12-14 12:50 | HP ---
HISTORY AND PHYSICAL DATE OF SURGERY: 12/15/2021 Tiago Grover is a 66-year-old patient seen with symptomatic left knee osteoarthritis. We discussed options for treatment. Patient elected to proceed with left total knee arthroplasty. Consent was obtained. PAST MEDICAL HISTORY: Hyperlipidemia, hypothyroidism. PAST SURGICAL HISTORY: Right total knee arthroplasty. DAILY MEDICATIONS: Levothyroxine, simvastatin, ibuprofen, Tylenol. ALLERGIES: NONE. SOCIAL HISTORY: The patient denies current tobacco use. PHYSICAL EVALUATION OF THE LEFT KNEE: Range of motion is negative 7 to 115. Mild effusion. Tenderness, medial joint line. Crepitus, medial and patellofemoral compartments with range of motion. Pain with patellofemoral compression. Ligaments stable. Hip rotation without pain. Distal neurovascular exam is intact. Radiographs of the left knee reveal severe osteoarthritic changes. IMPRESSION: 1. Left knee osteoarthritis. 2. Hyperlipidemia. 3. Hypothyroidism. PLAN: Left total knee arthroplasty. MMODL / IJN: [id number] /
[~2021-12-15 09:28] MED LIST changes: +ACETAMINOPHEN TAB 500 MG TAB PO PRN; +ENOXAPARIN 30 MG/0.3 ML SYRINGE SQ SCH; -HYDROmorphone 0.5 MG/0.5 ML SYRINGE IVP PRN; -LACTATED RINGERS 1,000 ML IV SCH; -LIDOCAINE 1% (10MG/ML) FOR IV START INTRADERMA PRN; +MELOXICAM 7.5 MG TAB PO PRN; +TRANEXAMIC ACID IN NACL,ISO-OS 1,000 MG in SALINE 1 100ML.BAG IVPB PRN
[2021-12-15] MEDS: LACTATED RINGERS 1,000 ML IV SCH ×2 (09:38→12:15)
[2021-12-15] MEDS: VANCOMYCIN 1,250 MG in SODIUM CHLORIDE 0.9% 250 ML IVPB PRN ×2 (10:33→12:15)
[2021-12-15] MEDS ORDERED: MIDAZOLAM 2 MG/2 ML VIAL IVP ONE (11:11)
[2021-12-15] MEDS ORDERED: fentaNYL (PF) 50 MCG/ML 2 ML AMP IVP ONE (11:11)
[2021-12-15] MEDS ORDERED: ROPIVACAINE 0.2%-NS ON-Q PUMP 1,090 MG, EMPTY PAIN BALL 1 EACH MISCELLANE PRN (11:35)
--- NOTE | 2021-12-15 11:37 | P.ANPRN ---
Procedure Note - Anesthesia - Nerve Block Performed Left Adductor Canal Time Out Performed: Yes (11:10) Date of Procedure: 12/15/21 Procedure Start Time: :10 Procedure Stop Time: Location of Patient: PreOp Indication: Acute Post-Operative Pain, Requested by Surgeon (Dr Green) Sedation Type: Sedate with meaningful contact maintained Preparation: Sterile Prep, Sterile Dressing Position: Supine Catheter: Indwelling Needle Types: Pajunk Needle Gauge: 21 Ultrasound used to visualize needle placement: Yes Ultrasound used to observe medication spread: Yes Injectate: 0.5% Ropivacaine (see comment for volume) (15cc) Blood Aspirated: No Pain Paresthesia on Injection Noted: No Resistance on Injection: Normal Image Stored and Saved: Yes Events: Uneventful and Well Tolerated
--- NOTE | 2021-12-15 11:39 | P.ANPRN ---
Procedure Note - Anesthesia - Nerve Block Performed Left iPack Time Out Performed: Yes Date of Procedure: 12/15/21 Procedure Start Time: Procedure Stop Time: Location of Patient: PreOp Indication: Acute Post-Operative Pain, Requested by Surgeon (Dr Green) Sedation Type: Sedate with meaningful contact maintained Preparation: Sterile Prep Position: Supine Catheter: None Needle Types: Pajunk Needle Gauge: 21 Ultrasound used to visualize needle placement: Yes Ultrasound used to observe medication spread: Yes Injectate: 0.5% Ropivacaine (see comment for volume) (15cc + 5cc PF Normal saline) Blood Aspirated: No Pain Paresthesia on Injection Noted: No Resistance on Injection: Normal Image Stored and Saved: Yes Events: Uneventful and Well Tolerated
[2021-12-15] MEDS ORDERED: ROPIVACAINE 5 MG/ML 30 ML VIAL ONE (12:17)
[2021-12-15] MEDS ORDERED: MIDAZOLAM 2 MG/2 ML VIAL ONE (12:17)
[2021-12-15] MEDS ORDERED: SODIUM CHLORIDE 0.9% (PF) 10 ML VIAL ONE (12:17)
[2021-12-15] MEDS ORDERED: fentaNYL (PF) 50 MCG/ML 2 ML AMP ONE (12:17)
[2021-12-15] MEDS ORDERED: PROPOFOL 10 MG/ML 20 ML VIAL IV ONE (12:17)
[2021-12-15] MEDS ORDERED: HYDROcodone/APAP 5-325MG 1 EACH TAB PO PRN (12:35)
[2021-12-15] MEDS ORDERED: NALOXONE 0.4 MG/ML 1 ML VIAL IV PRN (12:35)
[2021-12-15] MEDS ORDERED: ceFAZolin 1,000 MG in SODIUM CHLORIDE 0.9% 1,000 ML IRRIGATION ONE (12:46)
--- NOTE | 2021-12-15 14:00 | P.OP ---
Date of Procedure: 12/15/21 Preoperative Diagnosis: Left knee osteoarthritis Postoperative Diagnosis: Left knee osteoarthritis Procedure(s) Performed: Left total knee arthroplasty Implants: 1. Depuy attune size 6 narrow left cruciate retaining cemented femur 2. Depuy attune size 6 fixed-bearing cemented tibial baseplate 3. Depuy attune size 6 fixed-bearing cruciate retaining 12 mm polyethylene tibial insert 4. Depuy attune 41 mm all polyethylene cemented patella Anesthesia: regional (Adductor canal catheter, Ipack block), spinal Surgeon: Sang Green Stringed Instrument Repairer #1: Brandon Hook Estimated Blood Loss (ml): 45 Pathology: other (Bone) Condition: stable Disposition: PACU Indications for Procedure: 66-year-old gentleman seen with symptomatic left knee osteoarthritis. After having treatment options discussed, he elected to proceed with total knee arthroplasty. Operative Findings: See description of procedure Description of Procedure: Patient was taken to the operative suite after having an adductor canal catheter placed by the department of anesthesia as well as an Ipack for postoperative pain management. Patient underwent a spinal anesthetic by the department of anesthesia. Patient was given preoperative IV intake antibiotics and TXA. A well-padded tourniquet was placed about the left lower extremity. The lower extremity was then prepped and draped in the normal sterile orthopedic fashion. The extremity was elevated, a tourniquet was insufflated to 300. A standard anterior incision was made sharply through skin. Dissection was taken down through the subcutaneous soft tissues down to the extensor mechanism. A medial arthrotomy was performed, patella was everted and knee was flexed. There was advanced osteoarthritis noted. I introduced my distal intramedullary femoral drill. I then introduced the distal femoral cutting jig. Duane LAZARO secured the cutting jig with 2 pins. I held retractors in position while Duane LAZARO performed the distal femoral resection through the guide area we now removed her distal femoral cutting guide. We now placed our 4-in-1 femoral cutting block and positioned and it was secured with 2 pins by Duane LAZARO while I held the block in position. The distal femoral finishing was now completed. A proximal tibial cutting guide was positioned. I held the guide in the appropriate position with both hands well Duane LAZARO inserted stabilizing pins into the guide. Proximal tibial cut was made. We now placed a trial femoral component into position, along with an appropriate size tibial tray and insert. We now took the knee through range of motion and had full extension good flexion and good overall soft tissue balance noted. The patella was everted and stabilized with 2 towel clips held by Duane LAZARO while I performed a flush with patellar quad tendon utilizing a fresh sawblade. We templated the patella, appropriate drill holes were made. An appropriate trial patella was positioned, knee was taken through full range of motion with the patella tracking very nicely. The trial patella was removed. Drill holes were made through the femoral component. All trial components were removed after marking off the appropriate rotation of the tibia. Retractors were now positioned along the proximal tibia. An appropriate keel punch was made with the appropriate size tibial guide by myself on Duane LAZARO assisted by holding retractors. At this point appropriate size implants were chosen and opened. The joint was irrigated copiously with pulse lavage mechanical irrigation. The posterior capsule was infiltrated with local analgesic. The wound was irrigated with pulse lavage mechanical irrigation. We mixed antibiotic methylmethacrylate. We placed the knee into flexion. We placed m ultiple retractors assisted by Duane LAZARO to expose the proximal tibia. Once the methyl methacrylate was ready, the tibial component was cemented into place removing any excess methylmethacrylate form by both myself and Duane LAZARO. The femoral component was cemented into place removing the removing any excess methylmethacrylate performed by both myself and Duane LAZARO. We then inserted the appropriate size polyethylene tibial insert. We made sure that it was locked into position. We took the knee into full extension, and then back in a flexion making sure we had removed any excess methylmethacrylate. The patellar component was then cemented down and secured with clamp. Excess methylmethacrylate removed. We kept the knee in full extension, patellar clamp in position until methylmethacrylate had hardened. Once it had hardened the patellar clamp was removed. The knee was taken through full range of motion. The patella tracked nicely. There was good soft tissue balancing. The tourniquet was now released. Additional hemostasis was achieved via electrocautery. A second gram of TXA was given. The wound again was irrigated with pulse lavage mechanical irrigation. The superficial soft tissues were infiltrated local analgesic. The extensor mechanism was repaired with Ethibond. We checked the repair with range of motion and it was stable. The subcutaneous soft tissues were repaired with Vicryl in layers. The skin was approximated with pernio/Dermabond. Sterile dressings were applied followed by loose web roll and Ángel bandage. The patient was transferred to a bed, and taken to recovery in stable and satisfactory condition. Duane LAZARO assisted with this complex procedure.
--- NOTE | 2021-12-15 14:54 | XR ---
Left knee HISTORY: Postop 2 views of the left knee Patient is status post left knee arthroplasty. There is anatomic alignment. Lucency is present in the soft tissues. There are calcified arterial vickers noted along the distal left thigh and proximal left leg. Small ossific densities in the suprapatellar location may be postoperative. IMPRESSION: Orthopedic follow-up.
[2021-12-15] MEDS ORDERED: LACTATED RINGERS 1,000 ML IV ONE (15:20)
[2021-12-15] MEDS: HYDROmorphone 0.5 MG/0.5 ML SYRINGE IVP PRN ×3 (15:56→18:06)
[2021-12-15] MEDS: HYDROcodone/APAP 7.5-325MG 1 EACH TAB PO PRN ×2 (16:42→22:42)
[2021-12-15] MEDS ORDERED: SENNOSIDES-DOCUSATE SODIUM 1 EACH TAB PO SCH (21:00)
[2021-12-15] MEDS ORDERED: ATORVASTATIN 80 MG TAB PO SCH (21:00)
--- NOTE | 2021-12-15 21:24 | CONS ---
CONSULTATION REASON FOR CONSULTATION: Advice regarding hyperlipidemia and other medical issues, requested by Dr. Green. HISTORY OF PRESENT ILLNESS: This 66-year-old gentleman with a past medical history of hyperlipidemia, hypothyroidism, being followed by Dr. Cherry in the outpatient setting, underwent left total knee arthroplasty by Dr. Green. There is no history of any fever, rigors or chills. No history of chest pain, palpitations at this time. PAST MEDICAL HISTORY: Hyperlipidemia, hypothyroidism. HOME MEDICATIONS: Home medications are reviewed and include coenzyme Q, Flomax. Doses are reviewed. ALLERGIES: NONE. FAMILY HISTORY: History of cancer in the family. SOCIAL HISTORY: Previous history of smoking. REVIEW OF SYSTEMS: Fourteen-point review of systems negative except as mentioned earlier. PHYSICAL EXAMINATION: Pulse is 75, blood pressure 120/81, respiration 18. HEENT: Conjunctivae normal. NECK: No jugular venous distention. CARDIOVASCULAR: S1, S2 muffled. RESPIRATION: Breath sounds diminished at the bases. No rhonchi. No crackles. ABDOMEN: Soft, nontender. LEGS: Status post surgery. NERVOUS SYSTEM: No focal deficit. SKIN: No ulcer, rash, bleeding. JOINTS: No active deforming arthropathy. LABS: Preoperative labs are reviewed. Coags are within normal limits. ASSESSMENT: 1. Status post left total knee joint arthroplasty. 2. Hyperlipidemia. 3. Hypothyroidism. RECOMMENDATIONS AND DISCUSSION: In this 66-year-old gentleman who presented with multiple medical issues, at this time I recommend to continue medications, resume the home medications. Incentive spirometry. DVT prophylaxis. Will follow the patient closely. Patient may be asked to follow with Dr. Cherry closely after discharge. Thank you, Dr. Green, for letting us participate in the care of this patient. MMODL / IJN: [id number] /
[2021-12-15] MEDS ORDERED: ONDANSETRON 4 MG/2 ML VIAL IVP PRN (22:21)
[2021-12-16] MEDS: HYDROcodone/APAP 7.5-325MG 1 EACH TAB PO PRN (05:06)
[2021-12-16] MEDS ORDERED: ENOXAPARIN 30 MG/0.3 ML SYRINGE SQ SCH (06:00)
[2021-12-16] MEDS ORDERED: LEVOTHYROXINE 25 MCG TAB PO SCH (06:30)
[2021-12-16 06:57] VITALS: RESP 16
[2021-12-16] MEDS: HYDROmorphone 0.5 MG/0.5 ML SYRINGE IVP PRN ×2 (06:59→07:03)
--- NOTE | 2021-12-16 07:36 | P.PN ---
Progress Note - Text The patient is status post left adductor canal catheter placement. The catheter was placed for postoperative pain control, status post total left knee arthroplasty. Ropivacaine 0.2% is infusing at 8 mLs per hour. The patient has no complaints of left lower extremity numbness or weakness. Patient's VAS score is 34 -10. Assessment: Patient's adductor canal catheter is in place and working appropriately. Plan: continue infusion and adjust it as needed.
[2021-12-16] MEDS: LACTATED RINGERS 1,000 ML IV SCH (07:42)
[2021-12-16] MEDS ORDERED: TAMSULOSIN 0.4 MG CAP.ER.24H PO SCH (09:00)
[2021-12-16] MEDS ORDERED: CHOLECALCIFEROL 25 MCG (1000 IU) TABLET PO SCH (09:00)
[2021-12-16 09:16] LABS: Basophils # (A) 0.01 X 10*3/uL (0.00-0.10); Basophils % (A) 0.1 %; Eosinophils # (A) 0 X 10*3/uL (0.04-0.35); Eosinophils % (A) 0 %; HGB 11.5 g/dL (13.0-17.0); Immature Grans, Automated 0.2 %; Lymphocytes # (A) 1.81 X 10*3/uL (0.90-5.00); Lymphocytes % (A) 14.4 %; MCH 29.2 pg (27.0-32.0); MCHC 31.9 g/dL (32.0-37.0); MCV 91.4 fL (80.0-97.0); Mean Platelet Volume 11.5 fL (9.5-12.2); Monocytes # (A) 0.88 X 10*3/uL (0.20-1.00); NRBC Per 100 WBC 0 /100 WBCS (0.0-0.0); Neutrophils # (A) 9.88 X 10*3/uL (1.80-7.70); Neutrophils % (A) 78.3 %; Platelet Count 186 X 10*3/uL (140-440); RBC 3.94 X 10*6/uL (4.40-5.60); RDW 13.2 % (11.5-14.5); WBC 12.61 X 10*3/uL (4.50-10.00)
--- NOTE | 2021-12-16 11:04 | P.DS ---
Providers Date of admission: 12/15/2021 Expected date of discharge: 12/16/21 Attending physician: Sang Green Consults: 12/15/21 12:40 Consult Physician Routine Consulting Provider: Pk Smith Consult Reason/Comments: Medical Management s/p left total knee arthroplasty Do you want consulting provider notified?: Yes [facility] care [facility] Course: Date of admission: 12/15/2021 Date of discharge: 12/16/2021 Admission diagnosis: Left knee osteoarthritis Discharge diagnosis: Same Attending physician: Dr. Green Surgical procedures: Left total knee arthroplasty Brief history: Patient is a 66-year-old male with a history of progressive primary left knee osteoarthritis. At this point patient has failed conservative treatment measures and has opted to proceed with a elective left total knee arthroplasty. Hospital course: Details of patient's surgery can be found in operative report. Patient tolerated the procedure well and was subsequently transported to orthopedic floor. Patient's orthopeidc and medical care was provided daily. Patient had daily laboratory tests performed for evaluation of overall blood counts. Patient had daily physical therapy to include strengthening range of motion as well as education with walker ambulation. Patient was treated with Lovenox for their postoperative DVT prophylaxis during their inpatient stay. Patient was noted to have a relatively uneventful postoperative course. Patient reported satisfactory pain control with oral pain medications by postoperative day 1. Patient showed satisfactory progress with physical therapy. Patient moved steadily through the program and had no difficulty meeting the goals by postoperative day 1. Given patient's otherwise satisfactory course and having met physical therapy goals, plan is to discharge patient home with health services on postoperative day 1. Discharge condition/disposition: Patient will be discharged home with health services in stable condition. Discharge medications: Instructions are given on resumption of patient's normal daily medications per primary care recommendation, in addition patient will be prescribed [place] 7.5mg/325mg; Colace; Aspirin 81 mg BID x 30 days. Orthopedic Discharge Instructions: 1. Wound care and infection precautions, keep incision dry and covered while showering, no lotions, creams, moisturizers. No soaking, pools, hot tubs. Do not scrub over incision. 2. Weight-bear as tolerated with walker / cane until follow-up. 3. Ice and elevate when necessary. Do not exceed 20 minutes per hour with ice pack. 4. Utilize compression sleeve until seen at first follow up appointment. 5. Pain meds and anticoagulants per prescription. 6. Pain medication has potential to cause constipation. Increase oral fluid and fiber intake. Contact primary care provider if you have not had a bowel movement within 48 hours after discharge. 7. No anti-inflammatory medication until discussed at first post operative visit, this including Motrin, Aleve, Mobic, Diclofenac. 8. Follow up in office at 2 weeks postop with Duane Hook PA-C / Gilberto Celis PA-C 9. Follow up with your primary care doctor 7-10 days after discharge. 10. Contact [facility] with any questions, . Keep incision clean, dry, intact. While showering, cover silver foam dressing with Saran wrap. Silver foam dressing may removed in 7 days, 12/22/2021 Medications: [place] 7.5mg/325mg; Colace; Aspirin 81 mg BID x 30 days. Assessment: left knee osteoarthritis Procedures: left total knee arthroplasty Patient Condition at Discharge: Good Plan - Discharge Summary Discharge Rx Participant: Yes New Discharge Prescriptions: New Aspirin [Adult Low Dose Aspirin EC] 81 mg PO BID #60 tab Docusate [Colace] 100 mg PO DAILY #30 capsule HYDROcodone/APAP 7.5-325MG [[place] 7.5] 1 - 2 each PO Q6HR PRN #36 tab PRN Reason: Pain No Action Tamsulosin [Flomax] 0.4 mg PO DAILY Levothyroxine Sodium [Synthroid] 25 mcg PO DAILY Rosuvastatin [Crestor] 40 mg PO HS Ibuprofen 800 mg PO Q8H PRN PRN Reason: Pain Ubidecarenone [Co Q-10] 400 mg PO DAILY Cholecalciferol [Vitamin D3 (25 Mcg = 1000 Iu)] 50 mcg PO DAILY Fish Oil(Dose Unknown) 1 tab PO DAILY Acetaminophen [Tylenol Extra Strength] 500 mg PO DIRECTED PRN PRN Reason: Pain Discharge Medication List Tamsulosin [Flomax] 0.4 mg PO DAILY 09/27/18 [History] Levothyroxine Sodium [Synthroid] 25 mcg PO DAILY 06/17/20 [History] Acetaminophen [Tylenol Extra Strength] 500 mg PO DIRECTED PRN 12/10/21 [History] Cholecalciferol [Vitamin D3 (25 Mcg = 1000 Iu)] 50 mcg PO DAILY 12/10/21 [History] Fish Oil(Dose Unknown) 1 tab PO DAILY 12/10/21 [History] Ibuprofen 800 mg PO Q8H PRN 12/10/21 [History] Rosuvastatin [Crestor] 40 mg PO HS 12/10/21 [History] Ubidecarenone [Co Q-10] 400 mg PO DAILY 12/10/21 [History] Aspirin [Adult Low Dose Aspirin EC] 81 mg PO BID #60 tab 12/16/21 [Rx] Docusate [Colace] 100 mg PO DAILY #30 capsule 12/16/21 [Rx] HYDROcodone/APAP 7.5-325MG [[place] 7.5] 1 - 2 each PO Q6HR PRN #36 tab 12/16/21 [Rx] Follow up Appointment(s)/Referral(s): [facility],Equipment [NON-STAFF] - (*Please call [facility] once home to arrange delivery of Continuous Passive Motion (CPM) machine. ) [facility], [NON-STAFF] - ([facility] will call you to schedule your in home physical therapy and nursing visits. ) Brandon Hook PAC [PHYSICIAN MECHANICAL TEST TECHNICIAN] - 2 Weeks Patient Instructions/Handouts: Knee Replacement (DC) Activity/Diet/Wound Care/Special Instructions: Orthopedic Discharge Instructions: 1. Wound care and infection precautions, keep incision dry and covered while showering, no lotions, creams, moisturizers. No soaking, pools, hot tubs. Do not scrub over incision. 2. Weight-bear as tolerated with walker / cane until follow-up. 3. Ice and elevate when necessary. Do not exceed 20 minutes per hour with ice pack. 4. Utilize compression sleeve until seen at first follow up appointment. 5. Pain meds and anticoagulants per prescription. 6. Pain medication has potential to cause constipation. Increase oral fluid and fiber intake. Contact primary care provider if you have not had a bowel movement within 48 hours after discharge. 7. No anti-inflammatory medication until discussed at first post operative visit, this including Motrin, Aleve, Mobic, Diclofenac. 8. Follow up in office at 2 weeks postop with Duane Hook PA-C / Gilberto Celis PA-C 9. Follow up with your primary care doctor 7-10 days after discharge. 10. Contact [facility] with any questions, . Keep incision clean, dry, intact. While showering, cover silver foam dressing with Saran wrap. Silver foam dressing may removed in 7 days, 12/22/2021 Medications:
--- NOTE | 2021-12-16 11:21 | P.PN ---
Subjective Progress Note Date: 12/16/21 Principal diagnosis: left knee osteoarthritis Patient was seen at bedside this morning resting comfortably sitting up in chair. Patient states he did get up with Physical therapy this morning and walked out into hallway and up and down a couple steps. Patient says he does have some pain in his knee and he says it is mostly in front of knee. Patient says he does have a walker at home. Patient says he is ready to go home and has a spouse at home who can help him out. Patient says he has not had bowel movement since surgery, but has passed gas. Patient denies chest pain, fever, SOB, N/V, change in vision, loss of bowel/bladder control. Objective - Vital Signs Vital signs: Vital Signs Temp 98.4 F 12/16/21 06:56 Pulse 70 12/16/21 06:56 Resp 16 12/16/21 06:56 BP 122/74 12/16/21 06:56 Pulse Ox 97 12/16/21 06:56 Intake & Output 12/15/21 12/16/21 12/16/21 18:59 06:59 18:59 Intake Total 1401 Output Total 45 800 Balance 1356 -800 Weight 87.2 kg Intake: IV 1401 Output: Urine 800 Estimated Blood Loss 45 - Exam left knee: Incision is clean, dry, and intact. The silver foam dressing is in good condition. There is minimal soft tissue swelling and ecchymosis surrounding the medial and lateral aspects of the incision. Calf is soft, no tenderness with palpation. Plantar flexion, dorsiflexion, EHL, FHL are intact. Sensory exam to light touch throughout the extremity is intact, dorsal pedis pulses 2+. - Labs CBC & Chem 7: 12/16/21 06:49 Labs: Abnormal Lab Results - Last 24 Hours (Table) 12/16/21 Range/Units 06:49 WBC 12.61 H (4.50-10.00) X 10*3/uL RBC 3.94 L (4.40-5.60) X 10*6/uL Hgb 11.5 L (13.0-17.0) g/dL Hct 36.0 L (39.6-50.0) % MCHC 31.9 L (32.0-37.0) g/dL Neutrophils # 9.88 H (1.80-7.70) X 10*3/uL Eosinophils # 0 L (0.04-0.35) X 10*3/uL Assessment and Plan Assessment: left knee osteoarthritis post-op day #1 s/p left total knee arthroplasty Plan: 1. left knee osteoarthritis - surgery performed yesterday, 12/15/2021 - left total knee arthroplasty. Patient stable at bedside this morning. Plan discharge home today with health services. 2. Appreciate medical management 3. Pain Management - [place]; Dilaudid only if necessary 4. DVT ppx - Lovenox in hospital; going home with Aspirin 81 mg BID x 30 days 5. GI ppx - [place]; Colace 6. PT/OT - WBAT w/walker 7. Encourage incentive spirometer use 8. Discharge planning - discharge home today with health services Time with Patient: Less than 30
[2021-12-16] MEDS ORDERED: HYDROcodone/APAP 7.5-325MG 1 EACH TAB PO PRN (11:27)
[2021-12-16 14:15] VITALS: BP 138/82; PULSE 93; TEMP 98.6
--- NOTE | 2021-12-16 14:24 | PN ---
PROGRESS NOTE DATE OF SERVICE: 12/16/2021 This 66-year-old gentleman who was admitted with left total knee arthroplasty is improving significantly. No chest pain. No palpitations. No fever. PHYSICAL EXAMINATION: Pulse 70, blood pressure 120/72, respiration 16. CHEST: Clear to auscultation. CARDIOVASCULAR: S1, S2 muffled. ABDOMEN: Soft. LEGS: Status post surgery. LABS: Reviewed. ASSESSMENT: 1. Status post left total knee arthroplasty. 2. Hyperlipidemia. 3. Hypothyroidism. 4. Increased white count, possibly reactive. RECOMMENDATIONS AND DISCUSSION: I recommend to continue current medications, continue with the monitoring, symptomatic treatment. Otherwise, resume the home medications. Rest of the recommendations per Orthopedic Surgery. MMODL / IJN: [id number] /
== END 2021-12-16 15:24 | disposition home health service (06) ==
LOC: OR 09:28 → 4SSUR 16:15 → OR 12-16 15:24
PROVIDERS: ATTEND Orthopaedic Surgery
DX: M17.12 Unilateral primary osteoarthritis, left knee (principal); E78.5 Hyperlipidemia, unspecified; E03.9 Hypothyroidism, unspecified; D72.829 Elevated white blood cell count, unspecified; N40.0 Benign prostatic hyperplasia without lower urinary tract symptoms; Z87.891 Personal history of nicotine dependence; Z80.9 Family history of malignant neoplasm, unspecified; Z98.1 Arthrodesis status; Z79.1 Long term (current) use of non-steroidal anti-inflammatories (NSAID); Z79.890 Hormone replacement therapy; Z79.899 Other long term (current) drug therapy
CPT/HCPCS: 97161; 64999; 64448; 76942; 85025; 88300; 73560; 27447; C1776; C1713 ×2; J2250; J3370; J1100; J0690 ×3; J2405; J3010; J1650; J2795 ×2; J2704; J1170 ×2

== ENCOUNTER 2022-05-04 08:42 | Day surgery (SDC) | payer MEDICAID, MEDICARE ==
--- NOTE | 2022-05-04 08:13 | HP ---
HISTORY AND PHYSICAL DATE OF SURGERY: 05/04/2022. HISTORY OF PRESENT ILLNESS: Tiago Grover is a 66-year-old gentleman seen with left knee adhesions with history of previous total knee arthroplasty. We discussed options. He elected to proceed with manipulation under anesthesia of the left knee with steroid injection. Consent was obtained. PAST MEDICAL HISTORY: Hyperlipidemia and hypothyroidism. PAST SURGICAL HISTORY: Right total knee arthroplasty and left total knee arthroplasty. DAILY MEDICATIONS: 1. Levothyroxine. 2. Simvastatin. 3. Ibuprofen. ALLERGIES: None. SOCIAL HISTORY: Denies tobacco use. PHYSICAL EVALUATION: Left knee has well-healed anterior incisions. Range of motion is -3/4 to 100. He has good strength. He has good ligamentous stability. His distal neurovascular exam is intact. RADIOGRAPHS OF THE LEFT KNEE: Reveal stable total knee arthroplasty. IMPRESSION: 1. Left knee adhesions. 2. History of left total knee arthroplasty. 3. Hypothyroidism. 4. Hyperlipidemia. PLAN: Manipulation under anesthesia of the left knee. MMODL / IJN: [id number] /
[~2022-05-04 08:42] MED LIST changes: -ACETAMINOPHEN TAB 500 MG TAB PO PRN; -DEXAMETHASONE SOD PHOSPHATE 4 MG/ML 1 ML VIAL IV ONE; -ENOXAPARIN 30 MG/0.3 ML SYRINGE SQ SCH; +LACTATED RINGERS 1,000 ML IV SCH; -MELOXICAM 7.5 MG TAB PO PRN; -ONDANSETRON 4 MG/2 ML VIAL IVP ONE; -TRANEXAMIC ACID IN NACL,ISO-OS 1,000 MG in SALINE 1 100ML.BAG IVPB PRN
[2022-05-04 09:03] VITALS: TEMP 97.8
[2022-05-04] MEDS ORDERED: fentaNYL (PF) 50 MCG/ML 2 ML AMP ONE (09:43)
[2022-05-04] MEDS ORDERED: PROPOFOL 10 MG/ML 20 ML VIAL IV ONE (09:43)
[2022-05-04] MEDS ORDERED: MIDAZOLAM 2 MG/2 ML VIAL ONE (09:43)
[2022-05-04] MEDS ORDERED: IV FLUID CONTINUATION 1,000 ML IV ONE ×2 (09:50)
--- NOTE | 2022-05-04 09:52 | P.OP ---
Date of Procedure: 05/04/22 Preoperative Diagnosis: Left knee adhesions Postoperative Diagnosis: Left knee adhesions Procedure(s) Performed: Manipulation under anesthesia left knee Anesthesia: MAC Surgeon: Sang Green Estimated Blood Loss (ml): 0 Pathology: none sent Condition: stable Disposition: PACU Indications for Procedure: 66-year-old gentleman seen with persistent left knee adhesions with history of previous total knee arthroplasty. After discussing treatment options she elected to proceed with manipulation under anesthesia left knee. Consent was obtained. Operative Findings: See description of procedure Description of Procedure: Patient was taken to monitored anesthesia area. Patient underwent IV sedation by the department of anesthesia. Once sufficient anesthesia was noted I performed a manipulation of the left knee achieving full range of motion and full flexion with audible tearing of adhesions. Patient was now awakened having tolerated the procedure well.
[2022-05-04] MEDS: HYDROmorphone 0.5 MG/0.5 ML SYRINGE IVP PRN ×2 (10:15→10:25)
[2022-05-04 10:50] VITALS: RESP 16
[2022-05-04 11:05] VITALS: BP 123/79; PULSE 64
== END 2022-05-04 11:37 | disposition home or self-care (01) ==
LOC: OR 08:42
PROVIDERS: ATTEND Orthopaedic Surgery
DX: M24.662 Ankylosis, left knee (principal); Z96.652 Presence of left artificial knee joint; E78.5 Hyperlipidemia, unspecified; E03.9 Hypothyroidism, unspecified; Z87.891 Personal history of nicotine dependence; Z79.890 Hormone replacement therapy; Z79.899 Other long term (current) drug therapy; Z79.82 Long term (current) use of aspirin
CPT/HCPCS: 27599; J2250; J3010; J2704; J1170

== ENCOUNTER → 2022-12-03 | Outpatient (CLI) | payer MEDICAID, MEDICARE ==
--- NOTE | 2022-12-03 09:44 | XR ---
EXAMINATION TYPE: XR chest 2V DATE OF EXAM: 12/03/2022 COMPARISON: NONE TECHNIQUE: PA and lateral views submitted. HISTORY: Cough FINDINGS: The lungs are clear and there is no pneumothorax, pleural effusion, or focal pneumonia. Heart size normal and no overt failure. Osseous structures demonstrate hypertrophic and degenerative changes of the spine. Postsurgical changes overlying the cervical spine. Bilateral pleural-based thickening. IMPRESSION: 1. No acute process.
== END | disposition home or self-care (01) ==
LOC: RADXRYALE 09:09
PROVIDERS: ATTEND Physician Assistant Medical
DX: R06.02 Shortness of breath (principal)
CPT/HCPCS: 71046

== ENCOUNTER → 2023-02-26 | Outpatient (CLI) | payer MEDICARE ==
--- NOTE | 2023-02-26 18:16 | CA ---
Transthoracic Echo Report Name: Tiago Grover Age: 67 Gender: M : 1955 Exam Date: 02/26/2023 13:13 Exam Location: [place] Echo Ht (in): 66 Wt (lb): 180 Ordering Physician: Aurelio Cherry DO Attending/Referring Phys: Bethany Rea PAC Investigation Specialist Roman Damon Procedure CPT: Indications: R60.9 R53.83 I65.23G Cardiac Hx: Technical Quality: Fair Contrast 1: Total Dose (mL): Contrast 2: Total Dose (mL): MEASUREMENTS (Male / Female) Normal Values 2D ECHO LV Diastolic Diameter PLAX 4.7 cm 4.2 - 5.9 / 3.9 - 5.3 cm LV Systolic Diameter PLAX 3.0 cm IVS Diastolic Thickness 1.0 cm 0.6 - 1.0 / 0.6 - 0.9 cm LVPW Diastolic Thickness 1.1 cm 0.6 - 1.0 / 0.6 - 0.9 cm LV Relative Wall Thickness 0.4 RV Internal Dim ED PLAX 3.0 cm LVOT Diameter 2.0 cm Aortic Root Diameter 2.7 cm LA Systolic Diameter LX 3.0 cm 3.0 - 4.0 / 2.7 - 3.8 cm LV Diastolic Volume MOD BP 56.9 cm??? 67 - 155 / 56 - 104 cm??? LV Systolic Volume MOD BP 19.3 cm??? 22 - 58 / 19 - 49 cm??? LV Ejection Fraction MOD BP 66.0 % >= 55 % LV Diastolic Volume MOD 4C 62.5 cm??? LV Systolic Volume MOD 4C 23.1 cm??? LV Ejection Fraction MOD 4C 63.0 % LV Diastolic Length 4C 6.7 cm LV Systolic Length 4C 5.6 cm LV Diastolic Volume MOD 2C 50.7 cm??? LV Systolic Volume MOD 2C 15.8 cm??? LV Ejection Fraction MOD 2C 68.7 % LV Diastolic Length 2C 6.5 cm LV Systolic Length 2C 5.8 cm LA Volume 47.8 cm??? 18 - 58 / 22 - 52 cm??? Ascending Aorta Diameter 2.5 cm DOPPLER AV Peak Velocity 206.0 cm/s AV Peak Gradient 17.0 mmHg AV Mean Velocity 143.2 cm/s AV Mean Gradient 9.6 mmHg AV Velocity Time Integral 47.6 cm AI Peak Velocity 261.5 cm/s AI Peak Gradient 27.4 mmHg AI Pressure Half Time 548.8 ms LVOT Peak Velocity 95.7 cm/s LVOT Peak Gradient 3.7 mmHg LVOT Velocity Time Integral 19.3 cm LVOT Stroke Volume 59.1 cm??? LVOT Stroke Volume Index 30.9 ml/m??? AV Area Cont Eq vti 1.2 cm??? AV Area Cont Eq pk 1.4 cm??? MR Peak Velocity 330.3 cm/s MR Peak Gradient 43.7 mmHg Mitral E Point Velocity 80.9 cm/s Mitral A Point Velocity 68.0 cm/s Mitral E to A Ratio 1.2 MV Deceleration Time 214.4 ms TR Peak Velocity 226.7 cm/s TR Peak Gradient 20.6 mmHg Right Ventricular Systolic Press 25.6 mmHg PV Peak Velocity 99.9 cm/s PV Peak Gradient 4.0 mmHg FINDINGS Left Ventricle Left ventricular ejection fraction is estimated at 55-60 %. Right Ventricle Normal right ventricular size. Right Atrium Normal right atrial size. Left Atrium Normal left atrial size. Mitral Valve Structurally normal mitral valve. Mild MR. Aortic Valve Mild to moderateAV calcification. Mild AI. Estimated AV Area= 1.5cm2 Tricuspid Valve Tricuspid valve not well visualized. Mild TR. RVSP= 26mmhg Pulmonic Valve Pulmonic valve not well visualized. No pulmonic regurgitation. Pericardium Normal pericardium. Aorta Normal size aortic root and proximal ascending aorta. CONCLUSIONS Technically difficult study for interpretation Normal LV systolic function Aortic sclerosis with mild stenosis and mild insufficiency. The aortic valve poorly visualized Previewed by: Dr. Casimiro Jacobs MD (Electronically Signed) Final Date: 26 February 2023 18:15
== END | disposition home or self-care (01) ==
LOC: RADECHMAIN 12:58
PROVIDERS: ATTEND Family Medicine
DX: I35.0 Nonrheumatic aortic (valve) stenosis (principal); R53.83 Other fatigue; I65.23 Occlusion and stenosis of bilateral carotid arteries; R60.0 Localized edema
CPT/HCPCS: 93306

== ENCOUNTER → 2023-09-16 | Outpatient (CLI) | payer MEDICARE ==
--- NOTE | 2023-09-16 12:12 | CT ---
EXAMINATION TYPE: CT brain wo con CT DLP: 1190 mGycm, Automated exposure control for dose reduction was used. DATE OF EXAM: 09/16/2023 10:56 AM COMPARISON: None. CLINICAL INDICATION:Male, 68 years old with history of R413 amnesia, TECHNIQUE: Brain: Axial CT images of the brain were obtained with coronal and sagittal reformats created and rev iewed. Contrast used: None. Oral contrast used: None. FINDINGS: Brain: Extra-axial spaces: No abnormal extra-axial fluid collections. Ventricular system: Within normal limits Cerebral parenchyma: No acute intraparenchymal hemorrhage or mass effect. The zavala-white junction is well differentiated. Cerebellum: Unremarkable. Mass effect: No evidence of midline shift. Intracranial vasculature: Atherosclerosis of the arterial vasculature. Soft tissues: Probable Sebaceous cysts in the right posterior scalp. Calvarium/osseous structures: No depressed skull fracture. Paranasal sinuses and mastoid air cells: Mild scattered paranasal sinus disease. Visualized orbits: Postsurgical changes right lens. IMPRESSION: No acute intracranial process.
--- NOTE | 2023-09-16 15:40 | US ---
EXAMINATION TYPE: US carotid duplex BILAT DATE OF EXAM: 09/16/2023 COMPARISON: NONE CLINICAL INDICATION: Male, 68 years old with history of R4.00 SOMNOLENCE I35.2 AORTIC STENOSIS E78.2; TECHNIQUE: Carotid duplex ultrasound examination. Indirect Doppler criteria was utilized. FINDINGS: EXAM MEASUREMENTS: RIGHT: Peak Systolic Velocity (PSV) cm/sec ----- Right CCA: 72.3 ----- Right ICA: 93.5 ----- Right ECA: 86.6 ICA/CCA ratio: 1.29 RIGHT: End Diastole cm/sec ----- Right CCA: 12.1 ----- Right ICA: 23.0 ----- Right ECA: 12.6 LEFT: Peak Systolic Velocity (PSV) cm/sec ----- Left CCA: 93.5 ----- Left ICA: 93.0 ----- Left ECA: 81.2 ICA/CCA ratio: 0.99 LEFT: End Diastole cm/sec ----- Left CCA: 18.0 ----- Left ICA: 28.8 ----- Left ECA: 12.8 VERTEBRALS (direction of flow): Right Vertebral: Antegrade Left Vertebral: unable to visualize Rhythm: Normal X RAY SERVICE ENGINEER NOTES: Mild plaque bilateral bifurcations. No evidence of increased velocities IMPRESSION: 1. Nonvisualization of the left vertebral artery. 2. No hemodynamically significant internal carotid artery stenosis on either side. Criteria for Assigning % of Stenosis / Diameter reduction (Estimation based on the indirect measurements of the internal carotid artery velocities (ICA PSV). 1. Normal (no stenosis)=ICA PSV < 125 cm/s: ratio < 2.0: ICA EDV<40 cm/s. 2. Less than 50% stenosis=ICA PSV < 125 cm/s: ratio < 2.0: ICA EDV<40 cm/s. 3. 50 to 69% stenosis=ICA PSV of 125 to 230 cm/s: ration 2.0 ? 4.0: ICA EDV 40-100 cm/s. 4. Greater than 70% stenosis to near occlusion= ICA PSV > 230 cm/s: ratio > 4.0: ICA EDV > 100 cm/s. 5. Near occlusion= ICA PSV velocities may be low or undetectable: variable ratio and ICA EDV. 6. Total occlusion=unable to detect flow.
== END | disposition home or self-care (01) ==
LOC: RADUSWWP 10:08
PROVIDERS: ATTEND Family Medicine
DX: R40.0 Somnolence (principal); I35.2 Nonrheumatic aortic (valve) stenosis with insufficiency; R01.1 Cardiac murmur, unspecified; R41.3 Other amnesia; E78.2 Mixed hyperlipidemia
CPT/HCPCS: 70450; 93880

== ENCOUNTER 2023-12-14 07:45 | Day surgery (SDC) | payer MEDICARE ==
[2023-12-09 15:44] VITALS: BMI 30.2
[~2023-12-14 07:45] MED LIST changes: -LACTATED RINGERS 1,000 ML IV SCH; +LIDOCAINE 1% (10MG/ML) FOR IV START INTRADERMA PRN; -MIDAZOLAM 2 MG/2 ML VIAL IV PRN
[2023-12-14] MEDS: LACTATED RINGERS 1,000 ML IV SCH (08:17)
[2023-12-14 08:45] VITALS: TEMP 97.8
[2023-12-14] MEDS ORDERED: PROPOFOL 10 MG/ML 20 ML VIAL IV ONE (09:05)
--- NOTE | 2023-12-14 09:20 | P.GSHP ---
History of Present Illness H&P Date: 12/14/23 Chief Complaint: Colon cancer screening, history of polyps 68-year-old male here for colonoscopy. Last colonoscopy 5 years ago. Patient with history of colon polyps. No bowel complaints. Past Medical History Past Medical History: Hyperlipidemia, Thyroid Disorder Additional Past Medical History / Comment(s): Frequent urination at night. History of Any Multi-Drug Resistant Organisms: None Reported Past Surgical History: Joint Replacement, Orthopedic Surgery Additional Past Surgical History / Comment(s): Titanium plate placed in neck, left cataract removed with implant, bilateral knee replacements. Past Anesthesia/Blood Transfusion Reactions: No Reported Reaction Additional Past Anesthesia/Blood Transfusion Reaction / Comment(s): No blood transfusions. Smoking Status: Former smoker - Past Family History Sister(s) Family Medical History: Cancer Additional Family Medical History / Comment(s): Pancreatic cancer - 2 sisters. Mother Family Medical History: Cancer Additional Family Medical History / Comment(s): Lung cancer. Medications and Allergies Home Medications Medication Instructions Recorded Confirmed Type Tamsulosin [Flomax] 0.4 mg PO HS 09/27/18 12/14/23 History Levothyroxine Sodium [Synthroid] 25 mcg PO HS 06/17/20 12/14/23 History Cholecalciferol [Vitamin D3 (25 50 mcg PO DAILY 12/10/21 12/14/23 History Mcg = 1000 Iu)] Rosuvastatin [Crestor] 40 mg PO HS 12/10/21 12/14/23 History Ubidecarenone [Co Q-10] 400 mg PO DAILY 12/10/21 12/14/23 History Allergies Allergy/AdvReac Type Severity Reaction Status Date / Time No Known Allergies Allergy Verified 12/09/23 15:06 Surgical - Exam Vital Signs Temp Pulse Resp BP Pulse Ox 97.8 F 69 18 126/68 96 12/14/23 08:35 12/14/23 08:35 12/14/23 08:35 12/14/23 08:35 12/14/23 08:35 Physical exam: General: Well-developed, well-nourished HEENT: Normocephalic, sclerae nonicteric Abdomen: Nontender, nondistended Extremities: No edema Neuro: Alert and oriented Assessment and Plan (1) Colon cancer screening Narrative/Plan: Will proceed with colonoscopy at this time. Current Visit: No Status: Acute Code(s): Z12.11 - ENCOUNTER FOR SCREENING FOR MALIGNANT NEOPLASM OF COLON SNOMED Code(s): 221393015
--- NOTE | 2023-12-14 09:32 | P.PCN ---
Date of Procedure: 12/14/23 Procedure(s) Performed: PREOPERATIVE DIAGNOSIS: Colon cancer screening POSTOPERATIVE DIAGNOSIS: Mild diverticulosis PROCEDURE: Colonoscopy ANESTHESIA: MAC SURGEON: Ady Butts M.D. SPECIMENS: None ENDOSCOPIC PROCEDURE: The patient was placed on the endoscopy table in the left decubitus position. The Olympus colonoscope was inserted into the anus and passed under direct visualization to the base of the cecum. The appendiceal orifice was visualized. From that point the scope was slowly withdrawn inspecting all surfaces carefully. There were no neoplastic inflammatory or polypoid lesions throughout the cecum, ascending, transverse, descending, sigmoid and rectum. There was mild left-sided diverticulosis noted. Digital rectal examination was normal. The patient was taken to the recovery room in stable condition per anesthesia guidelines. RECOMMENDATIONS: Resume diet. Repeat colonoscopy 5 to 7 years.
[2023-12-14 09:59] VITALS: BP 124/85; PULSE 65; RESP 16
== END 2023-12-14 10:07 | disposition home or self-care (01) ==
LOC: ORWHC2ENDO 07:45
PROVIDERS: ATTEND Surgery
DX: Z12.11 Encounter for screening for malignant neoplasm of colon (principal); K57.30 Diverticulosis of large intestine without perforation or abscess without bleeding; Z86.010 Personal history of colon polyps; E78.5 Hyperlipidemia, unspecified; E07.9 Disorder of thyroid, unspecified; Z87.891 Personal history of nicotine dependence; Z79.890 Hormone replacement therapy; Z79.899 Other long term (current) drug therapy
CPT/HCPCS: J2704; G0105

== ENCOUNTER → 2024-03-06 | Outpatient (CLI) | payer MEDICARE ==
[2024-03-06 14:26] LABS: Basophils # (A) 0.02 X 10*3/uL (0.00-0.10); Basophils % (A) 0.4 %; Eosinophils # (A) 0.07 X 10*3/uL (0.04-0.35); Eosinophils % (A) 1.2 %; HCT 41.4 % (39.6-50.0); HGB 13.5 g/dL (13.0-17.0); Lymphocytes # (A) 1.51 X 10*3/uL (0.90-5.00); Lymphocytes % (A) 26.8 %; MCH 29.4 pg (27.0-32.0); MCHC 32.6 g/dL (32.0-37.0); MCV 90.2 FL (80.0-97.0); Mean Platelet Volume 11.5 FL (9.5-12.2); Monocytes # (A) 0.46 X 10*3/uL (0.20-1.00); Monocytes % (A) 8.2 %; NRBC Per 100 WBC 0 X 10*3/uL (0.00-0.01); Neutrophils # (A) 3.55 X 10*3/uL (1.80-7.70); Platelet Count 184 X 10*3/uL (140-440); RBC 4.59 X 10*6/uL (4.40-5.60); RDW 13.7 % (11.5-14.5); WBC 5.63 X 10*3/uL (4.50-10.00)
[2024-03-06 14:44] LABS: Prostate Specific Antigen 0.72 ng/mL (0.000-6.500); T4, Free (Free Thyroxine) 1.27 ng/dL (0.80-1.80)
[2024-03-06 14:48] LABS: ALT 17 U/L (10-49); AST 21 U/L (14-35); Albumin 4.3 g/dL (3.8-4.9); Albumin/Globulin Ratio 1.79 Ratio (1.60-3.17); Alkaline Phosphatase 77 U/L (41-126); BUN/Creat Ratio 19.25 Ratio (12.00-20.00); Blood Urea Nitrogen 15.4 mg/dL (9.0-27.0); Calcium 9.3 mg/dL (8.7-10.3); Carbon Dioxide 23.7 mmol/L (21.6-31.8); Chloride 107 mmol/L (96-109); Chol/HDL Ratio 3.22 Ratio; Creatine Kinase 196 U/L (35-257); Globulin 2.4 g/dL (1.6-3.3); Glucose 105 mg/dL (70-110); LDL Cholesterol,Calculated 84.8 mg/dL (0.0-131.0); Potassium 4.4 mmol/L (3.5-5.5); Sodium 142 mmol/L (135-145); Total Bilirubin 0.3 mg/dL (0.3-1.2); Total Protein 6.7 g/dL (6.2-8.2)
== END | disposition home or self-care (01) ==
LOC: LABWHC1 08:22
PROVIDERS: ATTEND Physician Assistant Medical
DX: E78.2 Mixed hyperlipidemia (principal); E55.9 Vitamin D deficiency, unspecified; N40.0 Benign prostatic hyperplasia without lower urinary tract symptoms; Z79.899 Other long term (current) drug therapy
CPT/HCPCS: 36415; 80053; 80061; 82550; 84153; 84439; 84443; 85025

== ENCOUNTER → 2024-12-13 | Outpatient (CLI) | payer MEDICARE | END | disposition home or self-care (01) | LOC: LABWHC1 13:27 | PROVIDERS: ATTEND Psychiatry & Neurology Neurology | DX: G25.0 Essential tremor (principal); R41.3 Other amnesia; R41.81 Age-related cognitive decline | CPT/HCPCS: 36415; 82607; 82746 ==

== ENCOUNTER → 2024-12-13 | Outpatient (CLI) | payer MEDICARE ==
--- NOTE | 2024-12-13 16:37 | MR ---
EXAMINATION TYPE: MR brain wo/w con DATE OF EXAM: 12/13/2024 COMPARISON: CT brain September 16, 2023. MRI brain January 24, 2021. HISTORY: Memory loss, essential tremor, age-related cognitive decline. TECHNIQUE: Multiplanar, multisequence images of the brain and brainstem is performed without and with IV contras t, utilizing 8.5 mL intravenous Gadobutrol . FINDINGS: Diffusion weighted images demonstrate no evidence of a recent infarct or other diffusion ab normality. There is mild ventricular and sulcal prominence redemonstrated. There are a few small sca ttered foci of T2 hyperintensity seen throughout the white matter bilaterally. Midline structures demonstrate normal morphology. The craniocervical junction appears within normal limits. Post contrast images demonstrate no abnormal enhancement. The dural venous sinuses appear pa tent. Right-sided aphakia is redemonstrated. Nasal septum remains deviated to left of midline. Parana jose sinuses are grossly clear. IMPRESSION: Persistent mild diffuse age-related cerebral atrophy and minimal chronic small vessel isc hemic change. No suspicious enhancement. No significant change from prior MRI. [facility], , 12/13/2024 4:35 PM
== END | disposition home or self-care (01) ==
LOC: RADMRIMAIN 13:49
PROVIDERS: ATTEND Psychiatry & Neurology Neurology
DX: I67.82 Cerebral ischemia (principal); R41.3 Other amnesia; R41.81 Age-related cognitive decline; G25.0 Essential tremor; J34.2 Deviated nasal septum; H27.01 Aphakia, right eye
CPT/HCPCS: 70553; A9585